=== PATIENT | male | born 1930 | race Caucasian/White ===

== ENCOUNTER 2019-05-18 12:19 | Inpatient (IN) ==
[2019-05-18 13:27] VITALS: BMI 24.9
[2019-05-18] MEDS ORDERED: NITROSTAT SL PRN (15:15)
[2019-05-18] MEDS ORDERED: TYLENOL PO PRN (15:15)
[2019-05-18] MEDS ORDERED: VISTARIL INJ IM PRN (15:15)
[2019-05-18] MEDS ORDERED: ATROPINE SULFATE PFS IVP PRN (15:15)
--- NOTE | 2019-05-18 16:51 | DI ---
EXAM: Chest one view HISTORY: Shortness of breath COMPARISON: None TECHNIQUE: Single view of the chest was performed FINDINGS: The lungs are clear. There is no pleural effusion or pneumothorax. The heart is enlarged and unchanged in size. The mediastinal contour is unchanged, noting atherosclerosis. There are no acute abnormalities of the bones. IMPRESSION: Cardiomegaly. No acute cardiopulmonary process.
[2019-05-18] MEDS: ASPIRIN EC PO SCH (17:00)
[2019-05-18] MEDS: SODIUM CHLORIDE 1,000 ML IV SCH (18:57)
[2019-05-19] MEDS: SODIUM CHLORIDE 1,000 ML IV SCH (07:13)
[2019-05-19] MEDS: NORVASC PO SCH (09:00)
[2019-05-19] MEDS: TOPROL XL PO SCH (09:00)
[2019-05-19] MEDS: ASPIRIN EC PO SCH (09:00)
[2019-05-19] MEDS: ZESTRIL PO SCH (09:00)
--- NOTE | 2019-05-19 09:53 | HP ---
DATE OF SERVICE: 05/18/19 REASON FOR HOSPITALIZATION/HISTORY OF PRESENT ILLNESS: 88 year old gentleman was hospitalized with being unable to walk, wears braces and shoulder pain with frequent falls. He has a history of slow heart rate and history of syncopal episodes. PAST MEDICAL HISTORY: Hypertension Alzheimer's Dementia Dyslipidemia BPH Chronic kidney disease, stage 3 Osteoarthritis-generalized History of shortness of breath Enlarged Prostate Incontinence and frequency of urination PAST SURGICAL HISTORY: Hernia Bilateral knee AA Cancer on ears/ nose Cataracts Right groin surgery two years ago REVIEW OF SYSTEMS: CONSTITUTIONAL: No night sweats. Weakness and fatigue. No fever or chills. HEENT: Eyes: No visual changes. No eye pain. No eye discharge. ENT: No runny nose. No epistaxis. No sinus pain. No sore throat. No odynophagia. No ear pain. No congestion. RESPIRATORY: No cough, no congestion. No hemoptysis. No shortness of breath. Dyspnea. CARDIOVASCULAR: No angina symptoms. No CHF symptoms. No atypical chest pain for CAD. No palpitations. No PND. No orthopnea. GASTROINTESTINAL: No abdominal pain. No nausea or vomiting. No diarrhea or constipation. No hematemesis. No hematochezia. GENITOURINARY: No urgency. No frequency. No dysuria. No hematuria. No obstructive symptoms. No discharge. No pain. No significant abnormal bleeding. MUSCULOSKELETAL: No musculoskeletal pain. No joint swelling. No arthritis. Fall and frequent falls. NEUROLOGICAL: No headache. No neck pain. No syncope. No seizures. Dizziness/Syncope. PSYCHIATRIC: Not anxious. No depression. No suicidal thoughts. No homicidal thoughts. SKIN: No rash. No lesions. No wounds. ENDOCRINE: No unexplained weight loss. No weight gain. HEMATOLOGIC/LYMPHATIC: No anemia. No purpura. No petechiae. No prolonged or excessive bleeding. No palpable lymph nodes. PERSONAL/FAMILY/SOCIAL HISTORY: Father Mother Brother/Sisters: None MEDICATIONS: Aspirin 81mg Po daily Amlodipine 5mg PO daily Lisinopril 10mg PO daily Mobic 7.5mg Po daily Metoprolol succinate 50mg ALLERGIES: No known allergies PHYSICAL EXAMINATION: GENERAL: The patient is pale. Alert and oriented to person only. VITAL SIGNS: Blood pressure 124/80 right, 126/80 left, respiratory rate 18, temperature 97.9, weight 145, pulse rate 60 with oxygen saturation 98%. HEENT: Head normocephalic, atraumatic. Eyes: Extraocular muscles are intact. Pupils are equal, round and reactive to light and accommodation. Ears: No lesions. Nose appeared normal. Throat: No exudate or erythema. NECK: Supple. No JVD, no carotid bruit. No lymphadenopathy or thyromegaly. LUNGS: Clear, equal diminished. Percussion note normal. Chest symmetrical. HEART: S1, S2, no S3. No murmur. No cyanosis or clubbing. No ascites. Pulses: Dorsalis pedis and posterior tibial pulses +1 to +2 bilaterally. ABDOMEN: Soft. Nontender. Bowel sounds active. No CVA tenderness. No mass felt. Femoral arteries +2. EXTREMITIES: Trace to +1 bilateral leg edema. Full range of motion of all extremities, equal. NEUROLOGIC: No focal deficit. Cranial nerves II through XII are grossly intact. No headache, no double vision or headache. SKIN: Not dry. Intact. Turgor - normal. LYMPHATIC: No palpable lymph nodes/no lymphedema. MUSCULOSKELETAL: Normal joints with no swelling. Muscle tone is normal. Leg weakness- in wheelchair. braces on knees. Decreased muscle tones in the legs. ASSESSMENT: 1. Dizziness 2. Frequent falls 3. Syncopal episode 4. History of bradyarrhythmia 5. History of bradycardia/bradyarrhythmia 6. Hypertension 7. Recent UTI 8. Dyslipidemia 9. Alzheimer's 10. BPH 11.Chronic Kidney Disease- stage 3 12.Knee osteoarthritis 13.Leg weakness. PLAN: 1. Admit 2. No cardiac markers 3. Routine telemetry orders 4. T4/TSH/ A1c/Lipids x1 5. Chest x-ray 6. Urinalysis 7. Regular diet 8. Fall precautions 9. Continue home medications TIME SPENT: More than 70 minutes. MTDD
--- NOTE | 2019-05-19 11:57 | RS.PTINEVL ---
Subjective - Patient information Date of Evaluation: 05/19/19 Date of Arrival on Unit: 05/18/19 Admitted From:: Home Diagnosis: dizziness and frequent falls Usual Living Arrangement: lives with step son and Home Environment: House, Stairs (few) Medical History: Hypertension, Dementia (alzheimer's disease), Arthritis Medical History Comments:: enlarged prostate LATEX ALLERGY?: No Surgical History Comments:: R groin sx, B knee surgery Medications: see chart Subjective Information/ Patient Comments:: pt states he has to have braces on B LE to be able to walk. pt unable to recall why he has to have knee braces. pt states he is able to transfer and walk at home (pt is poor historian). - Level of function Prior to this admission, the patient could do the following:: Partially Dependent Ambulation Abilities prior to this admission: pt had assist with ADL's Current Level of Function: Partially Dependent Current Equipment Used at Home: wheelchair, rolling walker, shower chair. commode, bed rail Interventions - Objective Patient Orientation: Person, Place Current Interventions: IV's, Telemetry Observation: pt with swelling BLE LLE worse than RLE. pt with L knee deformity with decreased flex, RLE with varus deformity and decreased flex Range of Motion - ROM Right Upper Extremity AROM: Marked limitation (decreased shld flex) Left Upper Extremity AROM: Marked limitation (decreased shld flex) Right Lower Extremity AROM: Marked limitation (decreased knee flex/ext) Left Lower Extremity AROM: Marked limitation (decreased knee flex/ext) Muscle Strength - Muscle Strength Right Upper Extremity Strength: Mild Weakness (shld flex 3-/5 , elbow flex/ext 3+/5) Left Upper Extremity Strength: Mild Weakness (shld flex 3-/5, elbow flex/ext 3+/5) Right Lower Extremity Strength: Mild Weakness (hip flex 3+/5, knee flex 3-/5, ext 3/5, ankle Df/PF 3+/5) Left Lower Extremity Strength: Mild Weakness (hip flex 3+/5, knee flex 3-/5, ext 3/5, ankle Df/PF 3+/5) Sensation - Sensation Right Upper Extremity Sensation: Intact/Normal Left Upper Extremity Sensation: Intact/Normal Right Lower Extremity Sensation: Intact/Normal Left Lower Extremity Sensation: Intact/Normal Palpation Palpation Findings: None/Normal Balance - Sitting Balance and Reactions Static Sitting Balance: Fair Dynamic Sitting Balance: Poor Sitting Equilibrium Reactions: Delayed Left, Delayed Right Sitting Protective Reactions: Delayed Left, Delayed Right - Standing Balance and Reactions Static Standing Balance: Poor Dynamic Standing Balance: Poor Standing Equilibrium Reactions: Delayed Left, Delayed Right Standing Protective Reactions: Delayed Left, Delayed Right Functional Mobility - Bed Mobility Rolling R/L: Min Assist Supine to Sit: Min Assist, 2 person assist - Transfers Sit to Stand: Min Assist, Mod Assist, 2 person assist Stand to Sit: Min Assist, 2 person assist - Safety Awareness Safety Awareness: Fair LETICIA INDEX SCORE: n/a Ambulation - Ambulation Assistive Device Used: Rolling Walker Orthotic/Prosthetic Device: No Distance: 5ft Assistance needed with Ambulation: Min Assist, Mod Assist, 2 person assist Gait Deviations: Forward posture, Short stride, Deviates from path Ambulation Comments: pt amb with LLE ext rotated with decreased step length, pt amb with significant forward flexed posture. Factors Affecting Ambulation: Decreased Balance, Weakness, Decreased Safety, Cognitive Status, Limited Endurance Treatment time - Time with patient Length of Evaluation: 19 Total treatment time: 24 Patient Education - Education Patient Education: Activity Modification, Education of Plan of Care Teaching Recipient: Patient Teaching Methods: Discussion Comments: discussion regarding POC Assessment - Assessment Problem List:: Decreased level of function, Requires training/education, Decreased safety/Risk of falls, Weakness, Cognitive status limits abilities Rehab Potential: Fair Further Therapy Indicated?: Yes Candidate for Swing Bed for Therapy Services?: feel pt would not be a candidate for swing bed for therapy, feel pt may require [facility] care. Evaluation Complexity: HISTORY: Medium, EXAM OF BODY SYSTEMS: Medium, CLINICAL DECISION MAKING: Medium Short Term Goals GOAL #1: pt demonstrate rolling with min x 1 Goal to be met by: 05/21/19 GOAL #2: Transfer sup to/from sit min x 1 Goal to be met by: 05/21/19 GOAL #3: Sit to/from stand min x2 Goal to be met by: 05/21/19 GOAL #4: pt amb with rwx with braces 25 ft with min x 2 Goal to be met by: 05/21/19 GOAL #5: Stand pivot bed to chair with min x 1 Goal to be met by: 05/21/19 [facility] Goals GOAL #1: pt transfer sit to/from stand minx 1 Goal to be met by: 05/24/19 GOAL #2: pt amb 75ft with rwx and braces with min x 1 Goal to be met by: 05/24/19 GOAL #3: pt with improved dyn sit balance fair + Goal to be met by: 05/24/19 Plan Plan of Care: Therapeutic EX, Therapeutic Activity Other:: gait training Frequency of Treatment: 1-2 X day, as tolerated Duration of Treatment: 5 days Anticipated Discharge Destination: LTC vs home Treatment Diagnosis (ICD 10 Codes): balance impaired R 26.81. difficulty walking R 26.2 Has the Physician been added for Co-signature?: Yes
[2019-05-19] MEDS: MOBIC PO SCH (13:18)
--- NOTE | 2019-05-19 13:29 | RS.OTINEVL ---
Subjective - Patient information Date of Evaluation: 05/19/19 Date of Arrival on Unit: 05/18/19 Admitted From:: Home Diagnosis: Hx of falls PRECAUTIONS: Risk for falls, needs to wear braces on his legs. Usual Living Arrangement: lives with step son and Living Arrangement Comments: Step son and Home Environment: House, Stairs (few) Medical History: Hypertension, Dementia (alzheimer's disease), Arthritis Medical History Comments:: enlarged prostate LATEX ALLERGY?: No Surgical History Comments:: R groin sx, B knee surgery Medications: see chart Subjective Information/ Patient Comments:: "I want to get up and down myself." "This chair is low." - Level of function Prior to this admission, the patient could do the following:: Partially Depende nt Ambulation Abilities prior to this admission: Pt walks with braces of both legs. Pt uses a rollator walker. Pt has assistance with shower and self care. Current Level of Function: Partially Dependent Comments: Pt has to have splints to walk and a RW and assistance,. Current Equipment Used at Home: wheelchair, rolling walker, shower chair. commode, bed rail Pain Assessment - Pain Pain Location Body Site: Knee Pain Aggravating Factors: Standing Pain Alleviating Factors: Sitting Interventions - Objective Patient Orientation: Person, Place, Situation Current Interventions: IV's Observation: Pt is weak and has limited AROM of BUE shoulders and knees. Pt has difficulty with functional transfers. Interventions - ROM Right Upper Extremity AROM: Moderate limitation Left Upper Extremity AROM: Moderate limitation - Strength Right Upper Extremity Strength: Mild Weakness Left Upper Extremity Strength: Mild Weakness - Sensation Right Upper Extremity Sensation: Intact/Normal Left Upper Extremity Sensation: Intact/Normal Balance - Sitting Balance Static Sitting Balance: Fair Dynamic Sitting Balance: Fair - Standing Balance Static Standing Balance: Poor Dynamic Standing Balance: Poor - Comments Balance Assessment Comments: Poor- ADL Skills - Self Feeding Self Feeding: Independent - Dressing Dressing LE: Max Assist - Toilet Management Toileting Management: Mod Assist, 1 person assist Functional Mobility - Bed Mobility Rolling R/L: CGA Scooting: Min Assist Supine to Sit: CGA Sit to Supine: Min Assist - Transfers Sit to Stand: Min Assist, 1 person assist Stand to Sit: Min Assist, 1 person assist Stand Pivot Transfers: Min Assist, 2 person assist Comments:: Pt requires extra time due to the braces not being on his legs during standing and transfers. - Ambulation Weight Bearing Status: FWB Assistive Device Used: Rolling Walker Assistance needed with Ambulation: Min Assist, 2 person assist - Safety Awareness Safety Awareness: Good LETICIA INDEX SCORE: . Additional Treatment Performed - Time with patient Length of Evaluation: 20 Total treatment time: 21 Activities Do you enjoy playing games?: No Would you be interested in leaving your room for activities?: Yes Would you enjoy group activities?: No Do you have difficulty with your vision?: No What types of things do you enjoy doing? Any Hobbies?: Watch TV. Patient Interests:: Watching Television, Visiting/Socializing Patient Education Patient Education: Education of diagnosis, Education of Plan of Care Teaching Recipient: Patient Teaching Methods: Discussion Assessment Problem List:: Decreased level of function, Requires training/education, Decreased safety/Risk of falls, Weakness, Pain limits previous level of function Rehab Potential: Good Further Therapy Indicated?: Yes Evaluation Complexity: HISTORY: Medium, EXAM OF BODY SYSTEMS: Medium, CLINICAL DECISION MAKING: Medium Short Term Goals - Goals GOAL 1: Pt to tolerate 15 minutes of activity tolerance. Goal to be met by: 05/21/19 GOAL 2: Pt to increase dyn. std. balance to be minimal assist for sink level ADLS. Goal to be met by: 05/23/19 GOAL 3: Pt to increase functional transfers for toileting to be CGA. Goal to be met by: 05/23/19 [facility] Goals GOAL 1: Pt to tolerate 20 minutes of activity tolerance to increase I of self car. Goal to be met by: 05/26/19 GOAL 2: Pt to increase dyn. std. balance to be minimal assist for sink level ADLS. Goal to be met by: 05/26/19 GOAL 3: Pt to increase functional transfers for toileting to be Mod-I. Goal to be met by: 05/26/19 Plan Plan of Care: Therapeutic EX, Neuromuscular Re-Educ, Therapeutic Activity, Self- Care/Home Management Modalities: Cold Pack/Cryotherapy, Ultrasound Frequency of Treatment: 1-2 X day, as tolerated Duration of Treatment: 1 Week Anticipated Discharge Destination: [facility] Treatment Diagnosis (ICD 10 Codes): Muscle weakness M62.81, Z74.1 Need for assistanct with personal care. Has the Physician been added for Co-signature?: Yes
[2019-05-20] MEDS: SODIUM CHLORIDE 1,000 ML IV SCH ×2 (06:00→14:22)
[2019-05-20] MEDS: TOPROL XL PO SCH (08:44)
[2019-05-20] MEDS: MOBIC PO SCH (08:44)
[2019-05-20] MEDS: ZESTRIL PO SCH (08:44)
[2019-05-20] MEDS: ASPIRIN EC PO SCH (08:44)
[2019-05-20] MEDS: NORVASC PO SCH (08:45)
--- NOTE | 2019-05-20 14:04 | PN ---
DATE OF SERVICE: 05/19/19 SUBJECTIVE: 88 year old white male hospitalized because of dizziness, frequent falls and near syncopal episode. The patient has history of bradyarrhythmias, so far no bradyarrhythmias are having noted of any significance. The patient is feeling better. REVIEW OF SYSTEMS: CONSTITUTIONAL: No night sweats. No fatigue, malaise, lethargy. No fever or chills. Weakness. HEENT: Eyes: No visual changes. No eye pain. No eye discharge. ENT: No runny nose. No epistaxis. No sinus pain. No sore throat. No odynophagia. No congestion. RESPIRATORY: No cough, no congestion. No hemoptysis. No shortness of breath. CARDIOVASCULAR: No angina symptoms. No CHF symptoms. No atypical chest pain for CAD. No palpitations. No PND. No orthopnea. GASTROINTESTINAL: No abdominal pain. No nausea or vomiting. No diarrhea or constipation. No hematemesis. No hematochezia. GENITOURINARY: No urgency. No frequency. No dysuria. No hematuria. No obstructive symptoms. No discharge. No pain. No significant abnormal bleeding. MUSCULOSKELETAL: No musculoskeletal pain; no joint swelling. NEUROLOGICAL: No headache. No neck pain. No syncope. No seizures. No dizziness. PSYCHIATRIC: Not anxious. No depression. No suicidal thoughts. No homicidal thoughts. SKIN: No rash. No lesions. No wounds. ENDOCRINE: No unexplained weight loss. No weight gain. HEMATOLOGIC/LYMPHATIC: No anemia. No purpura. No petechiae. No prolonged or excessive bleeding. No palpable lymph nodes. PHYSICAL EXAMINATION: VITAL SIGNS: Temperature 98, pulse 57, respiratory rate 16, blood pressure 140/60 and pulse ox 97%. HEENT: Head normocephalic, atraumatic. Eyes: Extraocular muscles are intact. Pupils are equal, round and reactive to light and accommodation. Ears: No lesions. Nose appeared normal. Throat: No exudate or erythema. NECK: Supple. No JVD, no carotid bruit. No lymphadenopathy or thyromegaly. LUNGS: Decreased breath sounds but clear to auscultation. Percussion note normal. Chest symmetrical. HEART: S1, S2, no S3. No murmurs. No cyanosis or clubbing. No ascites. Pulses: Dorsalis pedis and posterior tibial pulses +1 to +2 bilaterally. ABDOMEN: Soft. Nontender. Bowel sounds active. No CVA tenderness. No mass felt. EXTREMITIES: No edema. Full range of motion of all extremities, equal. NEUROLOGIC: No focal deficit. Cranial nerves II through XII are grossly intact. No headache, no double vision or headache. SKIN: Not dry. Intact. Turgor - normal. LYMPHATIC: No palpable lymph nodes/no lymphedema. MUSCULOSKELETAL: Normal joints with no swelling. Muscle tone is normal. LABS: Hgb 11, hct 34, WBC 7,500 normal differential, creatinine 1.4, BUN 27, potassium 4.1, TSH is normal. ASSESSMENT: 1. Syncope 2. Frequent falls likely from declining overall health from aging processes and sedentary lifestyle PLAN: 1. Continue the same treatment 2. Monitor telemetry 3. The patient had an echo done which showed LVH with enlarged LA cavity and mild mitral regurgitation, normal LV ejection fraction with normal LV contractility. No evidence of coronary insufficiency. TIME SPENT: More than 30 minutes. Plan and coordination of the patient's care discussed in the presence of nurse. AIDEE
[2019-05-21] MEDS: ASPIRIN EC PO SCH (08:45)
[2019-05-21] MEDS: TOPROL XL PO SCH (08:48)
[2019-05-21] MEDS ORDERED: DITROPAN PO SCH (09:00)
[2019-05-21] MEDS ORDERED: ZESTRIL PO SCH (09:00)
[2019-05-21 09:03] VITALS: TEMP 98.1
--- NOTE | 2019-05-21 09:07 | PCM.PROG ---
Attending Provider: ATTENDING PROVIDER: Dr. TATY BLANCO This patient is seen with Kristy Merlos, Nurse Practitioner. DATE OF SERVICE: 05/21/19 SUBJECTIVE: This 88 year old /WHITE M was hospitalized 05/18/19. The patient is resting comfortably. He is pleasantly confused. No dizziness and no signs of bradycardia. Blood pressure is slightly elevated. REVIEW OF SYSTEMS: CONSTITUTIONAL: No night sweats. No fatigue, malaise, lethargy. No fever or chills. Generalized weakness. HEENT: Eyes: No visual changes. No eye pain. No eye discharge. ENT: No runny nose. No epistaxis. No sinus pain. No odynophagia. No congestion. RESPIRATORY: No cough, no congestion. No hemoptysis. No shortness of breath. CARDIOVASCULAR: No angina symptoms. No CHF symptoms. No atypical chest pain for CAD. No palpitations. No orthopnea.. GASTROINTESTINAL: No abdominal pain. No nausea or vomiting. No diarrhea or constipation. No hematemesis. No hematochezia. GENITOURINARY: No urgency. No frequency. No dysuria. No hematuria. No obstructive symptoms. No discharge. No pain. No significant abnormal bleeding. MUSCULOSKELETAL: No musculoskeletal pain; no joint swelling. Leg weakness. NEUROLOGICAL: Awake, alert, confused. No headache. No neck pain. No syncope. No seizures. No dizziness. PSYCHIATRIC: Not anxious. No depression. No suicidal thoughts. No homicidal thoughts. SKIN: No rash. No lesions. No wounds. ENDOCRINE: No unexplained weight loss. No weight gain. HEMATOLOGIC/LYMPHATIC: No anemia. No purpura. No petechiae. No prolonged or excessive bleeding. No palpable lymph nodes. PHYSICAL EXAMINATION: GENERAL: The patient is awake, alert and oriented to person only, lying in bed in no distress. VITAL SIGNS: Temperature 97.7 F, Pulse 58, Respiratory Rate 16, BP 176/63, Pulse Ox 98% HEENT: Head normocephalic, atraumatic. Eyes: Extraocular muscles are intact. Pupils are equal, round and reactive to light and accommodation. Ears: No lesions. Nose appeared normal. Throat: No exudate or erythema. NECK: Supple. No JVD, no carotid bruit. No lymphadenopathy or thyromegaly. LUNGS: Clear to auscultation. Percussion note normal. Chest symmetrical. HEART: S1, S2, no S3. No murmurs. No cyanosis or clubbing. No ascites. Pulses: Dorsalis pedis and posterior tibial pulses +1 to +2 both sides. ABDOMEN: Soft. Non-tender. Bowel sounds active. No CVA tenderness. No mass felt. EXTREMITIES: No edema. Full range of motion of all extremities, equal. NEUROLOGIC: No focal deficit. Cranial nerves II through XII are grossly intact. No headache, no double vision or headache. SKIN: Not dry. Intact. Turgor-normal. LYMPHATIC: No palpable lymph nodes/no lymphedema. MUSCULOSKELETAL: Normal joints with no swelling. Muscle tone is normal. LAB REVIEW: 05/21/19 04:44 05/21/19 04:44 05/21/19 04:44: Sodium 140.3, Potassium 3.96, Chloride 108.4 H, Carbon Dioxide 27.2, Anion Gap 8.66, BUN 29.2 H, Creatinine 1.31 H, Estimated GFR (MDRD) 52.00, BUN/Creatinine Ratio 22.29, Glucose 79.8, Calcium 9.06, Total Bilirubin 0.38, AST 22.5, ALT 16.6, Alkaline Phosphatase 55.5 L, Total Protein 6.50, Albumin 3.59, Globulin 2.91, Albumin/Globulin Ratio 1.23 05/21/19 04:44: WBC 9.65, RBC 3.81 L, Hgb 11.7 L, Hct 36.2 L, MCV 95.0 H, MCH 30.7, MCHC 32.3, RDW Coeff of [place] 13.3, Plt Count 247, Immature Gran % (Auto) 0 .5, Neut % (Auto) 66.3, Lymph % (Auto) 15.9, [place] % (Auto) 10.2 H, Eos % (Auto) 6.6, Baso % (Auto) 0.5, Immature Gran # (Auto) 0.1, Neut # (Auto) 6.4, Lymph # (Auto) 1.5, [place] # (Auto) 1.0, Eos # (Auto) 0.6, Baso # (Auto) 0.1 ASSESSMENT: Please see below. 1. Syncope 2. Frequent falls likely from declining overall health from aging processes and sedentary lifestyle PLAN: 1. Discharge to [place] today 2. Norvasc 10mg at bedtime 3. Lisinopril 20mg QAM 4. Discontinue Mobic 5. CBC and CMP in one week 6. Followup at the intermediate. Plan and coordination of the patient's care discussed in the presence of Obstetrician and nurse. SCRIBED BY: Alex FERROist scribed while in presence of service performed by Dr. Blanco/Kristy Merlos APRN on 05/21/19 ([id number])
[2019-05-21] MEDS: MOBIC PO SCH (10:17)
--- NOTE | 2019-05-21 12:52 | CM.DICTOOL ---
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, BILATERAL LAST VITALS Temp Pulse Resp BP Pulse Ox 98.1 F 70 16 129/66 98 05/21/19 09:49 05/21/19 09:49 05/21/19 09:49 05/21/19 09:49 05/21/19 10:00 TAKE THESE MEDICATIONS AT HOME Acetaminophen (Tylenol) 650 mg PO Q4H PRN PRN Reason: Pain Amlodipine Besylate (Norvasc) 10 mg PO BEDTIME [facility] Aspirin (Aspirin Ec) 81 mg PO DAILYWM [facility] Last Admin: 05/21/19 08:45 Dose: 81 mg Lisinopril (Zestril) 20 mg PO QAM [facility] Last Admin: 05/21/19 08:50 Dose: 20 mg Metoprolol Succinate (Toprol Xl) 50 mg PO DAILY [facility] Last Admin: 05/21/19 08:48 Dose: 50 mg Oxybutynin Chloride (Ditropan) 5 mg PO QAM [facility] Last Admin: 05/21/19 08:48 Dose: 5 mg ALLERGIES No Known Allergies Allergy (Unverified 05/18/19 13:15) DISCONTINUED MEDICATIONS Meloxicam (Mobic) NEW PRESCRIPTIONS: NORVASC 10MG PO QHS LISINOPRIL 20MG PO QAM OXYBUTYNIN 5MG PO QAM CBC & CMP IN ONE WEEK (05/28/19) SMOKING: FORMER SMOKER DISEASE SPECIFIC EDUCATION: FREQUENT FALLS DIZZINESS MEDICATION MANAGEMENT FOLLOW-UPS LAB REVIEW: 05/21/19 04:44 05/21/19 04:44 05/21/19 04:44: Sodium 140.3, Potassium 3.96, Chloride 108.4 H, Carbon Dioxide 27.2, Anion Gap 8.66, BUN 29.2 H, Creatinine 1.31 H, Estimated GFR (MDRD) 52.00, BUN/Creatinine Ratio 22.29, Glucose 79.8, Calcium 9.06, Total Bilirubin 0.38, AST 22.5, ALT 16.6, Alkaline Phosphatase 55.5 L, Total Protein 6.50, Albumin 3.59, Globulin 2.91, Albumin/Globulin Ratio 1.23 05/21/19 04:44: WBC 9.65, RBC 3.81 L, Hgb 11.7 L, Hct 36.2 L, MCV 95.0 H, MCH 30.7, MCHC 32.3, RDW Coeff of Ladan 13.3, Plt Count 247, Immature Gran % (Auto) 0.5, Neut % (Auto) 66.3, Lymph % (Auto) 15.9, [place] % (Auto) 10.2 H, Eos % (Auto) 6.6, Baso % (Auto) 0.5, Immature Gran # (Auto) 0.1, Neut # (Auto) 6.4, Lymph # (Auto) 1.5, [place] # (Auto) 1.0, Eos # (Auto) 0.6, Baso # (Auto) 0.1 PLAN: PLAN TO DISCHARGE TO HOME TODAY, 05/21/2019 DIET: REGULAR DIET ACTIVITY: 2 PERSON MODERATE ASSIST GAIT BELT AND ROLLING WALKER GAIT IS UNSTEADY AND SLOW - RISK FOR FALLS FOLLOW-UP: WILL SEE ON ROUNDS AT [facility] CODE STATUS: DO NOT RESUSCITATE LABS: CBC AND CMP IN ONE WEEK ON 05/28/2019. MR. GOTTI IS ORIENTED TO PERSON THIS MORNING, PLEASANTLY CONFUSED TO TIME, PLACE, AND SITUATION. DENIES THE PRESENCE OF DIZZINESS. FAMILY IS AGREEABLE WITH PLAN TO DISCHARGE TO [facility] TODAY. PT WILL BE GOING TO ROOM 150-1. LUNG SOUNDS ARE CLEAR, NO SOA PRESENT. NO NOTED EDEMA. ABDOMEN IS SOFT, BOWEL SOUNDS ACTIVE, LAST BM 05/14/2019. URINARY INCONTINENCE, PT WEARS DIAPER. PT HAS GENERALIZED WEAKNESS AND IS AT RISK FOR FALLS, REQUIRES X2 MODERATE ASSISTANCE WITH ROLLING WALKER AND GAIT BELT. APPETITE IS GOOD, HYDRATION STATUS IS ADEQUATE. TATY BLANCO M.D. ISAK MCINTYRE, TRANSIT PROOF MACHINE OPERATOR
--- NOTE | 2019-05-21 13:22 | PN ---
DATE OF SERVICE: 05/20/19 SUBJECTIVE: The patient was seen and examined today. The patient's condition is stable. He is feeling a lot better. Rhythm strips reviewed and it showed sinus rhythm. No V-tech or any SVT noted. The patient's records from [facility] [place] [facility] reviewed and the patient had both knees x-rays done which showed severe osteoarthritis. The patient needs to have physical therapy. REVIEW OF SYSTEMS: CONSTITUTIONAL: No night sweats. No fatigue, malaise, lethargy. No fever or chills. HEENT: Eyes: No visual changes. No eye pain. No eye discharge. ENT: No runny nose. No epistaxis. No sinus pain. No sore throat. No odynophagia. No congestion. RESPIRATORY: No cough, no congestion. No hemoptysis. No shortness of breath. CARDIOVASCULAR: No angina symptoms. No CHF symptoms. No atypical chest pain for CAD. No palpitations. No PND. No orthopnea. GASTROINTESTINAL: No abdominal pain. No nausea or vomiting. No diarrhea or constipation. No hematemesis. No hematochezia. GENITOURINARY: No urgency. No frequency. No dysuria. No hematuria. No obstructive symptoms. No discharge. No pain. No significant abnormal bleeding. MUSCULOSKELETAL: No musculoskeletal pain; no joint swelling. NEUROLOGICAL: No headache. No neck pain. No syncope. No seizures. No dizziness. PSYCHIATRIC: Not anxious. No depression. No suicidal thoughts. No homicidal thoughts. SKIN: No rash. No lesions. No wounds. ENDOCRINE: No unexplained weight loss. No weight gain. HEMATOLOGIC/LYMPHATIC: No anemia. No purpura. No petechiae. No prolonged or excessive bleeding. No palpable lymph nodes. PHYSICAL EXAMINATION: VITAL SIGNS: Temperature 98.3, pulse 63, respiratory rate 18, blood pressure 170/73 and pulse ox 98%. HEENT: Head normocephalic, atraumatic. Eyes: Extraocular muscles are intact. Pupils are equal, round and reactive to light and accommodation. Ears: No lesions. Nose appeared normal. Throat: No exudate or erythema. NECK: Supple. No JVD, no carotid bruit. No lymphadenopathy or thyromegaly. LUNGS: Decreased breath sounds but clear to auscultation. Percussion note normal. Chest symmetrical. HEART: S1, S2, no S3. No murmurs. No cyanosis or clubbing. No ascites. Pulses: Dorsalis pedis and posterior tibial pulses +1 to +2 bilaterally. ABDOMEN: Soft. Nontender. Bowel sounds active. No CVA tenderness. No mass felt. EXTREMITIES: No edema. Full range of motion of all extremities, equal. NEUROLOGIC: No focal deficit. Cranial nerves II through XII are grossly intact. No headache, no double vision or headache. SKIN: Not dry. Intact. Turgor - normal. LYMPHATIC: No palpable lymph nodes/no lymphedema. MUSCULOSKELETAL: Normal joints with no swelling. Muscle tone is normal. Arthritic pain and not having enough strength to walk. LABS: Hgb 10.9, hct 34, WBC 8,800 normal differential, creatinine 1.4, BUN 27, potassium 4.1. ASSESSMENT: 1. Frequent falls from severe osteoarthritis of the knee 2. Generalized weakness and deterioration of overall health from aging process 3. Chronic anemia 4. Chronic kidney disease 5. History of bradyarrhythmias CONDITION: Stable for now. TIME SPENT: More than 30 minutes. Plan and coordination of the patient's care discussed in the presence of nurse. AIDEE
[2019-05-21 14:09] VITALS: BP 108/54
[2019-05-21] MEDS ORDERED: NORVASC PO SCH (21:00)
--- NOTE | 2019-05-24 13:47 | DS ---
DATE OF SERVICE: 05/21/19 FINAL DIAGNOSIS: 1. SYNCOPAL EPISODE, RESOLVED 2. DIZZINESS, RESOLVED 3. FREQUENT FALLS, HISTORY OF 4. BRADYARRHYTHMIA 5. HYPERTENSION 6. DYSLIPIDEMIA 7. BENIGN PROSTATIC HYPERTROPHY 8. CHRONIC KIDNEY DISEASE, STAGE 3 9. ALZHEIMER'S DEMENTIA 10.OSTEOARTHRITIS 11.2D ECHO, 05/19/2019 12.HERNIA REPAIR 13.KNEE AA, RODDY 14.CANCER ON EARS/NOSE 15.CATARACTS, BILATERAL LAST VITALS: Temp Pulse Resp BP Pulse Ox 98.1 F 70 16 129/66 98 05/21/19 09:49 05/21/19 09:49 05/21/19 09:49 05/21/19 09:49 05/21/19 10:00 DISCHARGE INSTRUCTIONS: PLAN TO DISCHARGE TO HOME TODAY, 05/21/2019. FOLLOW-UP: WILL SEE ON ROUNDS AT [facility]. CODE STATUS: DO NOT RESUSCITATE. LABS: CBC AND CMP IN ONE WEEK ON 05/28/2019. TAKE THESE MEDICATIONS AT HOME: Acetaminophen (Tylenol) 650 mg PO Q4H PRN Amlodipine Besylate (Norvasc) 10 mg PO BEDTIME [facility] Aspirin (Aspirin Ec) 81 mg PO DAILYWM [facility] Lisinopril (Zestril) 20 mg PO QAM [facility] Metoprolol Succinate (Toprol Xl) 50 mg PO DAILY [facility] Oxybutynin Chloride (Ditropan) 5 mg PO QAM [facility] ALLERGIES: No Known Allergies Allergy (Unverified 05/18/19 13:15) DISCONTINUED MEDICATIONS: Meloxicam (Mobic) NEW PRESCRIPTIONS: NORVASC 10MG PO QHS LISINOPRIL 20MG PO QAM OXYBUTYNIN 5MG PO QAM CBC & CMP IN ONE WEEK (05/28/19) SMOKING: FORMER SMOKER DISEASE SPECIFIC EDUCATION: FREQUENT FALLS DIZZINESS MEDICATION MANAGEMENT FOLLOW-UPS DIET: REGULAR DIET ACTIVITY: 2 PERSON MODERATE ASSIST GAIT BELT AND ROLLING WALKER GAIT IS UNSTEADY AND SLOW - RISK FOR FALLS HOSPITAL COURSE: This is a white male who presented to our office. He had had a syncopal episode was dizzy and had been falling recently. He is fairly new patient to us. He was hospitalized about a month ago with a bladder infection and bradycardia and then went back to the emergency room at [facility] about two weeks ago. Also found to have another UTI. He had a Holter monitor which we do not know the result of. He is very weak requiring assistance with ambulation. We admitted him and he was found to be dehydrated. Kidney function elevated. BUN up to 47. He was placed on slow IV fluids normal saline at 75 cc an hour and placed on telemetry. There was no significant bradycardia or arrhythmias noted on the telemetry. X-ray were reviewed from previous hospitalization showing significant arthritis of both knees. after IV fluids he did seem to feel better and reported less dizziness. Blood pressure has become elevated, today has been up with systolic in the 170's. We will increase his Norvasc to 10mg at bedtime and then make his Lisinopril 20mg in the morning. At the time of discharge blood pressure 129/66. Dr. Nelson did perform an echo which showed mild LVH, normal contractility. We did discontinue his Mobic due to his chronic kidney disease. He is terrible incontinent so we will start Oxybutynin 5mg to take in the morning. He does also have a history of BPH. He has seen neurology. I believe they tried Myrbetriq however the family couldn't afford this medication and so he has not been on anything. He has not had very good followup. The family wish for him to go to [place] for rehab, hopefully with strengthening of his legs to prevent further falls as he has been home with them requiring 24 hour care. We will discharge him in stable condition. CBC and CMP in one week. [facility]. He is discharged in stable condition. TIME SPENT: More than 60 minutes. AIDEE
--- NOTE | 2019-05-25 10:42 | PN ---
DATE OF SERVICE: 05/21/19 SUBJECTIVE: The patient was seen and examined with the Nurse Practitioner. The patient's condition is stable. The patient so far uneventful hospital course. He is going to be discharged to the senior living. REVIEW OF SYSTEMS: CONSTITUTIONAL: No night sweats. No fatigue, malaise, lethargy. No fever or chills. HEENT: Eyes: No visual changes. No eye pain. No eye discharge. ENT: No runny nose. No epistaxis. No sinus pain. No sore throat. No odynophagia. No congestion. RESPIRATORY: No cough, no congestion. No hemoptysis. No shortness of breath. CARDIOVASCULAR: No angina symptoms. No CHF symptoms. No atypical chest pain for CAD. No palpitations. No PND. No orthopnea. GASTROINTESTINAL: No abdominal pain. No nausea or vomiting. No diarrhea or constipation. No hematemesis. No hematochezia. GENITOURINARY: No urgency. No frequency. No dysuria. No hematuria. No obstructive symptoms. No discharge. No pain. No significant abnormal bleeding. MUSCULOSKELETAL: No musculoskeletal pain; no joint swelling. NEUROLOGICAL: No headache. No neck pain. No syncope. No seizures. No dizziness. PSYCHIATRIC: Not anxious. No depression. No suicidal thoughts. No homicidal thoughts. SKIN: No rash. No lesions. No wounds. ENDOCRINE: No unexplained weight loss. No weight gain. HEMATOLOGIC/LYMPHATIC: No anemia. No purpura. No petechiae. No prolonged or excessive bleeding. No palpable lymph nodes. PHYSICAL EXAMINATION: HEENT: Head normocephalic, atraumatic. Eyes: Extraocular muscles are intact. Pupils are equal, round and reactive to light and accommodation. Ears: No lesions. Nose appeared normal. Throat: No exudate or erythema. NECK: Supple. No JVD, no carotid bruit. No lymphadenopathy or thyromegaly. LUNGS: Clear to auscultation. Percussion note normal. Chest symmetrical. HEART: S1, S2, no S3. No murmurs. No cyanosis or clubbing. No ascites. Pulses: Dorsalis pedis and posterior tibial pulses +1 to +2 bilaterally. ABDOMEN: Soft. Nontender. Bowel sounds active. No CVA tenderness. No mass felt. EXTREMITIES: No edema. Full range of motion of all extremities, equal. NEUROLOGIC: No focal deficit. Cranial nerves II through XII are grossly intact. No headache, no double vision or headache. SKIN: Not dry. Intact. Turgor - normal. LYMPHATIC: No palpable lymph nodes/no lymphedema. MUSCULOSKELETAL: Normal joints with no swelling. Muscle tone is normal. LABS: Telemetry did not show any significant arrhythmias CARDIOVASCULAR STATUS: Stable. ASSESSMENT: 1. Bilateral severe osteoarthritis of the right, inability to ambulate and walk PLAN: 1. The patient will undergo physical therapy and see how he does TIME SPENT: More than 30 minutes. Plan and coordination of the patient's care discussed in the presence of nurse. AIDEE
--- NOTE | 2019-05-25 10:43 | PN ---
05/18/19: Level 5 05/19/19: Intermediate 05/20/19: Intermediate 05/21/19: D as in discharge MTDD
--- NOTE | 2019-06-03 10:25 | ECHO2D ---
Date of Exam: 05/19/19 Ordering Physician: DR. TATY BLANCO Room #: 109 Reason for Echo: DIZZINESS, BRADYCARDIA, HTN M-Mode Normal Adult Results LV Dimensions Normal Adult Results AoV Opening excursions >1.6 >1.6 LVEDD-base- 3.5-5.8 4.8 Ao root dimensions 2.0-3.7 3.2 LVESD-base- 3.1-4.6 L. Atrium dimensions 1.9-3.8 4.8 Post. Wall thickness 0.8-1.1 1.2 IV septum (thickness) 0.7-1.2 1.3 Post. Wall excursion 0.72-1.3 NORMAL Septal motion NORMAL Systolic motion R. Ventricular cavity 1.5-2.0 NORMAL LVEF 60% 61% Paradoxical septal wall motion NORMAL 2-D : 2-D M Mode Echocardiogram was performed using apical four chamber and left parasternal long and short axis views. Mitral, tricuspid and aortic valves appear to be normal. Contractility of the left ventricle seems to be normal, so is the cavity size. ENLARGED LEFT ATRIAL CAVITY. Aortic root appears to be normal. There is no pericardial effusion. There is no thrombus noted in the left ventricle or left atrial cavity. No mitral valve prolapse noted. COLOR FLOW: MILD TO MODERATE AORTIC REGURGITATION M-MODE: MV: CALCIFIC MITRAL VALVE ANNULUS AV: NORMAL TV: NORMAL PV: CHAMBER SIZE: ENLARGED LEFT ATRIAL CAVITY WALL MOTION: NORMAL PERICARDIUM: NORMAL INTERPRETATION: 1. LEFT VENTRICULAR HYPERTROPHY WITH ENLARGED LEFT ATRIAL CAVITY 2. NORMAL LEFT VENTRICULAR CONTRACTILITY 3. NORMAL VALVES 4. MILD TO MODERATE AORTIC REGURGITATION 5. CALCIFIC MITRAL VALVE ANNULUS MTDD
== END 2019-05-21 14:05 | DRG 149 ==
LOC: MEDSURG A 12:19
PROVIDERS: ADMIT Internal Medicine; ATTEND Internal Medicine
DX: I10 Essential (primary) hypertension; F02.80 Dementia in other diseases classified elsewhere, unspecified severity, without behavioral disturbance, psychotic disturbance, mood disturbance, and anxiety; N18.3 Chronic kidney disease, stage 3 (moderate); R55 Syncope and collapse; R53.1 Weakness; G30.9 Alzheimer's disease, unspecified; M17.10 Unilateral primary osteoarthritis, unspecified knee; E78.5 Hyperlipidemia, unspecified; N40.0 Benign prostatic hyperplasia without lower urinary tract symptoms; R42 Dizziness and giddiness; D64.9 Anemia, unspecified; I49.8 Other specified cardiac arrhythmias

== ENCOUNTER 2019-09-07 13:14 | Inpatient (IN) ==
[2019-09-07] MEDS ORDERED: DUONEB NEB STA (13:49)
[2019-09-07 14:04] LABS: HEMATOCRIT 35.5 % (42.0-52.0)
--- NOTE | 2019-09-07 14:11 | ED.PDOC ---
General ED Provider: Dr. ALEXANDER SLOAN Chief Complaint: Cough Stated Complaint: Has become increasingly congested at CO despite tx with oral antibiotics and po steroids/ Has coarse productive cough and reported O 2 Sats decreasing to 87=-88%. Referred her by Dr Blanco Time Seen by Physician: 13:40 Mode of Arrival: Wheelchair Information Source: Patient Primary Care Provider: TATY BLANCO Nursing and Triage Documentation Reviewed and Agree: Yes Does patient meet sepsis criteria?: No System Inflammatory Response Syndrome: Not Applicable Sepsis Protocol: For patient's 13 years and over: Temp is 96.8 and below OR 101 and greater Pulse >90 BPM Resp >20/minute Acutely Altered Mental Status Are patient's symptoms suggestive of a new infection, such as: -Pneumonia -Skin, Soft Tissue -Endocarditis -UTI -Bone, Joint Infection -Implantable Device -Acute Abdominal Infection -Wound Infection -Meningitis -Blood Stream Catheter Infection -Unknown Respiratory Complaint Exam Respiratory Complaint/Exam Onset/Duration: 1 wk Symptoms Are: Still present Timing: Intermittent Initial Severity: Moderate Current Severity: Mild Location: Chest Character: Reports Productive cough Aggravating: Reports Recumbent position Alleviating: Reports None Associated Signs and Symptoms: Reports Dyspnea, Fever and Wheezing Related History: Reports Similar episode History of Healthcare-Acquired Pneumonia: Lives at care home Related Surgical History: Reports None Pulmonary Embolism Risk Factors: None Cardiac Risk Factors: Reports None Pseudomonas Risk Factors: Reports None Tuberculosis Risk Factors: Reports None Status Asthmaticus Risk Factors: Reports None Home Oxygen Use: No Recent Stress Test: No Recent Echo/LV Function: No Current Antibiotic Use: Yes Current Asthma Medication Use: Yes Respiratory Distress: None Inadequate Respiratory Effort: No Dysphagia Present: No Stridor Present: No JVD Present: No Accessory Muscle Use: No Retractions: Not Present and Supraclavicular Diminished Breath Sounds: No Sinus Tenderness: None Grunting Respirations: No Kussmaul Respirations: No Differential Diagnoses: Bronchitis, Bronchospasm, URI and Influenza Review of Systems Review Of Systems Constitutional: Reports No symptoms Eyes: Reports No symptoms Ears, Nose, Mouth, Throat: Reports No symptoms Respiratory: Reports Cough, Short of air and Wheezing Cardiac: Reports No symptoms GI: Reports No symptoms : Reports No symptoms Musculoskeletal: Reports No symptoms Skin: Reports No symptoms Neurological: Reports No symptoms Endocrine: Reports No symptoms Hematologic/Lymphatic: Reports No symptoms All Other Systems: Reviewed and Negative [facility] Medical History Alzheimers disease (Acute) Bradycardia (Acute) Dementia (Acute) Dizzy spells (Acute) Dyslipidemia (Acute) Hernia (Acute) HTN (hypertension) (Acute) Skin cancer (melanoma) (Acute) Family History Father Gangrene Social History Smoking and tobacco status: Former smoker Alcohol intake: former Counseling given: No Physical Exam Physical Exam Appearance: Reports Ill-appearing Ill-appearing: Mild Pain Distress: None Eyes: Reports HUBER, EOMI and Conjunctiva clear ENT: Reports Ears normal, Nose normal, Oropharynx normal and TMs Occluded Neck: Supple Respiratory: Reports Breath sounds diminished, Respirations nonlabored and Wheezes Cardiovascular: Reports RRR GI/: Reports Soft, Nontender and No masses Musculoskeletal: Reports Normal strength, ROM intact, No edema and No calf tenderness Skin: Reports Warm, Dry and Normal color Neurological: Reports Sensation intact, Motor intact, Reflexes intact, Cranial nerves intact, Alert and Oriented Psychiatric: Reports Affect appropriate and Mood appropriate Physician Notification Case Discussed Physician Notified: Dr Rodriguez admission Time of Notification: 15:00 Critical Care Note Critical Care Note Total Time (mins): 30 Course Course Hematology/Chemistry: 09/07/19 14:00 09/07/19 14:00 Orders, Labs, Meds: Lab Review 09/07/19 09/07/19 09/07/19 13:50 14:00 14:00 WBC 15.74 H RBC 3.90 L Hgb 11.4 L Hct 35.5 L MCV 91.0 MCH 29.2 MCHC 32.1 RDW Coeff of Ladan 13.7 Plt Count 391 Immature Gran % (Auto) 1.8 Neut % (Auto) 91.0 H Lymph % (Auto) 4.6 L Weber % (Auto) 1.9 Eos % (Auto) 0.3 Baso % (Auto) 0.4 Immature Gran # (Auto) 0.3 Neut # (Auto) 14.3 H Lymph # (Auto) 0.7 Weber # (Auto) 0.3 L Eos # (Auto) 0.0 Baso # (Auto) 0.1 Puncture Site O2 Saturation ABG pH ABG pCO2 ABG pO2 ABG HCO3 ABG Total CO2 ABG Base Excess FiO2 % Sodium 135.4 Potassium 5.03 Chloride 101.0 Carbon Dioxide 23.7 Anion Gap 15.73 BUN 43.5 H Creatinine 1.50 H Estimated GFR (MDRD) 44.00 BUN/Creatinine Ratio 29.00 Glucose 113.8 H Calcium 8.99 Total Bilirubin 0.26 AST 29.7 ALT 18.1 Alkaline Phosphatase 59.9 Total Protein 7.24 Albumin 4.01 Globulin 3.23 Albumin/Globulin Ratio 1.24 Influ A Molecular Assay Negative by naat Influ B Molecular Assay Negative by naat 09/07/19 14:12 WBC RBC Hgb Hct MCV MCH MCHC RDW Coeff of Ladan Plt Count Immature Gran % (Auto) Neut % (Auto) Lymph % (Auto) Weber % (Auto) Eos % (Auto) Baso % (Auto) Immature Gran # (Auto) Neut # (Auto) Lymph # (Auto) Weber # (Auto) Eos # (Auto) Baso # (Auto) Puncture Site Rb O2 Saturation 94.0 L ABG pH 7.457 H ABG pCO2 33.7 L ABG pO2 65.0 L ABG HCO3 23.8 ABG Total CO2 25 ABG Base Excess 0 FiO2 % 21.0 Sodium Potassium Chloride Carbon Dioxide Anion Gap BUN Creatinine Estimated GFR (MDRD) BUN/Creatinine Ratio Glucose Calcium Total Bilirubin AST ALT Alkaline Phosphatase Total Protein Albumin Globulin Albumin/Globulin Ratio Influ A Molecular Assay Influ B Molecular Assay Orders Category Date Time Status ABG DRAW REQUEST Stat CARDIO 09/07/19 13:46 Completed EKG-(ED ONLY) Stat CARDIO 09/07/19 13:46 Completed NEBULIZER TREATMENT Stat CARDIO 09/07/19 13:49 Completed IV [ED IV/MEDIPORT/POWERPORT] .ONCE EMERGENCY 09/07/19 15:28 Active ABG Stat LAB 09/07/19 14:12 Completed BLOOD CULTURE Stat LAB 09/07/19 15:28 Ordered CBC W/ AUTO DIFF Stat LAB 09/07/19 14:00 Completed CMP [COMPREHENSIVE METABOLIC PANEL] Stat LAB 09/07/19 14:00 Completed FLU A & B MOLECULAR [FLU A/B MOLECULAR] Stat LAB 09/07/19 13:50 Completed LACTIC ACID Stat LAB 09/07/19 15:31 Ordered PROCALCITONIN Stat LAB 09/07/19 14:00 Received SPUTUM CULTURE Stat LAB 09/07/19 13:50 Ordered UA [URINALYSIS C & S IF INDICATED] Stat LAB 09/07/19 13:47 Ordered 0.9 % Sodium Chloride [Saline Flush] MEDS 09/07/19 15:28 Ordered 1 syr IVF PRN PRN Ceftriaxone/D5w 1 gm Premix [Rocephin 1 gm/50 ml D5w] MEDS 09/07/19 15:28 Active 1 gm in 50 ml IV ONCE Ipratropium/Albuterol Neb [Duoneb] MEDS 09/07/19 13:49 Discontinued 3 ml NEB ONCE STA Methylprednisolone Sod Succ/Pf [Solu-Medrol 125 mg] MEDS 09/07/19 15:28 Discontinued 125 mg IVP ONCE STA CHEST, 1V AP ONLY Stat RADS 09/07/19 13:46 Completed Medications Generic Name Dose Route Start Last Admin Trade Name Freq PRN Reason Stop Dose Admin CEFTRIAXONE/D5W 1 GM PREMIX 1 gm in 50 mls @ 75 mls/hr 09/07/19 15:28 Rocephin 1 Gm/50 Ml D5w IV 09/07/19 16:07 ONCE STA Sodium Chloride 1 syr 09/07/19 15:28 Saline Flush IVF PRN PRN To flush IV Discontinued Medications Generic Name Dose Route Start Last Admin Trade Name Freq PRN Reason Stop Dose Admin Albuterol/Ipratropium 3 ml 09/07/19 13:49 09/07/19 14:27 Duoneb NEB 09/07/19 13:50 3 ml ONCE STA Administration Methylprednisolone Sodium Succinate 125 mg 09/07/19 15:28 Solu-Medrol 125 Mg IVP 09/07/19 15:29 ONCE STA Vital Signs: Temp Pulse Resp BP Pulse Ox 09/07/19 13:14 98.6 F 79 20 136/67 93 L Discharge Plan Discharge Patient Disposition: ADMITTED INPATIENT Discharge Problem: Acute bronchitis, Dementia ED Provider: ALEXANDER SLOAN Condition: Stable
--- NOTE | 2019-09-07 14:47 | DI ---
EXAM: Chest one view HISTORY: Cough COMPARISON: 05/18/2019 TECHNIQUE: Single view of the chest was performed FINDINGS: The lungs are clear. There is no pleural effusion or pneumothorax. The heart is mildly e nlarged in size. The mediastinal contour is unchanged, noting atherosclerosis. There are no acute a bnormalities of the bones. Advanced degenerative changes of the shoulders. IMPRESSION: Cardiomegaly. No acute cardiopulmonary process.
[2019-09-07] MEDS ORDERED: SOLU-MEDROL 125 MG IVP STA (15:28)
[2019-09-07] MEDS ORDERED: ROCEPHIN 1 GM/50 ML D5W 1 GM/50 ML BAG IV STA (15:28)
[2019-09-07] MEDS ORDERED: XOPENEX 0.63 MG NEB PRN (15:56)
[2019-09-07] MEDS: SODIUM CHLORIDE 1,000 ML IV SCH (17:48)
[2019-09-07] MEDS: LOVENOX SUBCUT SCH (18:06)
[2019-09-07] MEDS: DUONEB NEB SCH (20:05)
[2019-09-07] MEDS ORDERED: DUONEB NEB SCH (21:00)
[2019-09-07 21:21] VITALS: BMI 25.0
[2019-09-07] MEDS: AZACTAM 1 GM in SODIUM CHLORIDE 50 ML IV SCH (21:28)
[2019-09-08] MEDS: DUONEB NEB SCH ×4 (04:20→19:55)
[2019-09-08 05:23] LABS: HEMATOCRIT 32.1 % (42.0-52.0)
[2019-09-08] MEDS: AZACTAM 1 GM in SODIUM CHLORIDE 50 ML IV SCH ×3 (06:12→20:36)
[2019-09-08] MEDS: LOVENOX SUBCUT SCH (09:09)
[2019-09-08] MEDS: ZESTRIL PO SCH (09:09)
[2019-09-08] MEDS: TOPROL XL PO SCH (09:09)
[2019-09-08] MEDS: NORVASC PO SCH (09:09)
[2019-09-08] MEDS: ASPIRIN CHEWABLE PO SCH (09:09)
[2019-09-08] MEDS: SODIUM CHLORIDE 1,000 ML IV SCH (11:47)
[2019-09-08] MEDS: ROCEPHIN 1 GM/50 ML D5W 1 GM/50 ML BAG IV SCH (13:29)
[2019-09-08] MEDS ORDERED: DECADRON 4 MG/ML SDV IM ONE (17:00)
[2019-09-08] MEDS: NON-FORMULARY MEDICATION TP SCH (20:37)
[2019-09-09] MEDS: SODIUM CHLORIDE 1,000 ML IV SCH ×3 (01:47→17:51)
[2019-09-09] MEDS: AZACTAM 1 GM in SODIUM CHLORIDE 50 ML IV SCH ×3 (04:12→20:01)
[2019-09-09] MEDS: DUONEB NEB SCH ×4 (04:25→19:36)
[2019-09-09 05:28] LABS: HEMATOCRIT 29.4 % (42.0-52.0)
[2019-09-09] MEDS ORDERED: DECADRON 4 MG/ML SDV IM SCH (09:00)
--- NOTE | 2019-09-09 09:11 | PCM.PROG ---
Attending Provider: ATTENDING PROVIDER: Dr. TATY BLANCO This patient is seen with Kristy Merlos, Nurse Practitioner. DATE OF SERVICE: 09/09/19 SUBJECTIVE: This 88 year old /WHITE M was hospitalized 09/07/19. The patient is resting comfortably. He is pleasantly confused. Still coughing. He is co mplaining of knee pain as usual. Urine is positive for Proteus. He has been eating well. REVIEW OF SYSTEMS: CONSTITUTIONAL: No night sweats. No fatigue, malaise, lethargy. No fever or chills. Weakness. HEENT: Eyes: No visual changes. No eye pain. No eye discharge. ENT: No runny nose. No epistaxis. No sinus pain. No odynophagia. No congestion. RESPIRATORY: Cough, no congestion. No hemoptysis. No shortness of breath. CARDIOVASCULAR: No angina symptoms. No CHF symptoms. No atypical chest pain for CAD. No palpitations. No orthopnea.. GASTROINTESTINAL: No abdominal pain. No nausea or vomiting. No diarrhea or constipation. No hematemesis. No hematochezia. GENITOURINARY: No urgency. No frequency. No dysuria. No hematuria. No obstructive symptoms. No discharge. No pain. No significant abnormal bleeding. MUSCULOSKELETAL: No musculoskeletal pain; no joint swelling. NEUROLOGICAL: Awake, alert, confusion. No headache. No neck pain. No syncope. No seizures. No dizziness. PSYCHIATRIC: Not anxious. No depression. No suicidal thoughts. No homicidal thoughts. SKIN: No rash. No lesions. No wounds. ENDOCRINE: No unexplained weight loss. No weight gain. HEMATOLOGIC/LYMPHATIC: No anemia. No purpura. No petechiae. No prolonged or excessive bleeding. No palpable lymph nodes. PHYSICAL EXAMINATION: GENERAL: The patient is awake, alert and oriented to person only, lying in bed in no distress. VITAL SIGNS: Temperature 97.8 F, Pulse 102, Respiratory Rate 20, BP 145/66, Pulse Ox 99% HEENT: Head normocephalic, atraumatic. Eyes: Extraocular muscles are intact. Pupils are equal, round and reactive to light and accommodation. Ears: No le sions. Nose appeared normal. Throat: No exudate or erythema. NECK: Supple. No JVD, no carotid bruit. No lymphadenopathy or thyromegaly. LUNGS: Diminished breath sounds with bilateral rhonchi. Clear to auscultation. Percussion note normal. Chest symmetrical. HEART: S1, S2, no S3. No murmurs. No cyanosis or clubbing. No ascites. Pulses: Dorsalis pedis and posterior tibial pulses +1 to +2 both sides. ABDOMEN: Soft. Non-tender. Bowel sounds active. No CVA tenderness. No mass felt. EXTREMITIES: No edema. Full range of motion of all extremities, equal. NEUROLOGIC: No focal deficit. Cranial nerves II through XII are grossly intact. No headache, no double vision or headache. SKIN: Not dry. Intact. Turgor-normal. LYMPHATIC: No palpable lymph nodes/no lymphedema. MUSCULOSKELETAL: Normal joints with no swelling. Muscle tone is normal. LAB REVIEW: 09/09/19 04:44 09/09/19 04:44 09/09/19 04:44: Sodium 136.8, Potassium 4.79, Chloride 107.7 H, Carbon Dioxide 20.1 L, Anion Gap 13.79, BUN 56.2 H, Creatinine 1.14 H, Estimated GFR (MDRD) 61.00, BUN/Creatinine Ratio 49.29, Glucose 117.6 H, Calcium 8.39 L, Total Bilirubin 0.21, AST 28.9, ALT 22.5, Alkaline Phosphatase 47.5 L, Total Protein 6.14 L, Albumin 3.40 L, Globulin 2.74, Albumin/Globulin Ratio 1.24 09/09/19 04:44: WBC 22.46 H, RBC 3.21 L, Hgb 9.6 L, Hct 29.4 L, MCV 91.6, MCH 29.9, MCHC 32.7, RDW Coeff of Ladan 13.8, Plt Count 410, Immature Gran % (Auto) 1.6, Neut % (Auto) 87.8 H, Lymph % (Auto) 5.3 L, [place] % (Auto) 5.1, Eos % (Auto) 0.0, Baso % (Auto) 0.2, Immature Gran # (Auto) 0.4, Neut # (Auto) 19.7 H, Lymph # (Auto) 1.2, [place] # (Auto) 1.2, Eos # (Auto) 0.0, Baso # (Auto) 0.0 ASSESSMENT: Please see below. 1. UTI, positive for Proteus 2. Acute bronchitis 3. COPD 4. Renal Azotemia 5. Underlined chronic kidney disease stage 3 PLAN: 1. Repeat chest x-ray 2. Tussionex one teaspoon BID PRN Plan and coordination of the patient's care discussed in the presence of Dairy Scientist and nurse. SCRIBED BY: Alex FERROist scribed while in presence of service performed by Dr. Blanco/Kristy Merlos APRN on 09/09/19 ([id number])
[2019-09-09] MEDS: ROCEPHIN 1 GM/50 ML D5W 1 GM/50 ML BAG IV SCH (09:53)
[2019-09-09] MEDS: NON-FORMULARY MEDICATION TP SCH ×2 (09:55→20:03)
[2019-09-09] MEDS: TUSSIONEX PO PRN (09:56)
[2019-09-09] MEDS: ASPIRIN CHEWABLE PO SCH (09:57)
[2019-09-09] MEDS: TOPROL XL PO SCH (09:57)
[2019-09-09] MEDS: ZESTRIL PO SCH (09:58)
[2019-09-09] MEDS: NORVASC PO SCH (09:58)
[2019-09-09] MEDS: LOVENOX SUBCUT SCH (10:00)
--- NOTE | 2019-09-09 12:20 | DI ---
EXAM: Chest one view HISTORY: Bronchitis COMPARISON: 09/07/2019 TECHNIQUE: Single view of the chest was performed FINDINGS: Stable heart size and mediastinal contour. Atherosclerotic calcifications. The lungs are clear. No pleural effusion or pneumothorax. No acute abnormalities of the bones. Advanced osteoart hritis of the bilateral shoulders. IMPRESSION: No acute cardiopulmonary process or significant interval change.
[2019-09-10] MEDS: DUONEB NEB SCH ×4 (04:53→20:30)
[2019-09-10] MEDS: AZACTAM 1 GM in SODIUM CHLORIDE 50 ML IV SCH (05:05)
[2019-09-10] MEDS ORDERED: DECADRON 4 MG/ML SDV IM STA (08:59)
[2019-09-10] MEDS ORDERED: ULTRAM PO SCH (09:00)
[2019-09-10] MEDS: ULTRAM PO SCH ×2 (09:08→20:11)
[2019-09-10] MEDS ORDERED: PREDNISONE PO SCH (09:30)
[2019-09-10] MEDS: ZESTRIL PO SCH (09:50)
[2019-09-10] MEDS: NON-FORMULARY MEDICATION TP SCH ×2 (09:50→20:11)
[2019-09-10] MEDS: NORVASC PO SCH (09:50)
[2019-09-10] MEDS: ASPIRIN CHEWABLE PO SCH (09:50)
[2019-09-10] MEDS: TOPROL XL PO SCH (09:50)
[2019-09-10] MEDS: SODIUM CHLORIDE 1,000 ML IV SCH ×2 (09:58→23:10)
[2019-09-10] MEDS: ROCEPHIN 1 GM/50 ML D5W 1 GM/50 ML BAG IV SCH (09:59)
[2019-09-10] MEDS: LOVENOX SUBCUT SCH (10:10)
--- NOTE | 2019-09-10 10:27 | PCM.PROG ---
Attending Provider: ATTENDING PROVIDER: Dr. TATY BLANCO This patient is seen with Kristy Merlos, Nurse Practitioner. DATE OF SERVICE: 09/10/19 SUBJECTIVE: This 88 year old /WHITE M was hospitalized 09/07/19. The patient is lying in bed resting. He is still having significant pain, having some moaning while sleeping. He has pain in the knees due to severe arthritis. White count is improved. Hemoglobin and hematocrit are improving. REVIEW OF SYSTEMS: CONSTITUTIONAL: No night sweats. No fatigue, malaise, lethargy. No fever or chills. HEENT: Eyes: No visual changes. No eye pain. No eye discharge. ENT: No runny nose. No epistaxis. No sinus pain. No odynophagia. No congestion. RESPIRATORY: Positive for cough and shortness of breath. No hemoptysis. CARDIOVASCULAR: No angina symptoms. No CHF symptoms. No atypical chest pain for CAD. No palpitations. No orthopnea.. GASTROINTESTINAL: No abdominal pain. No nausea or vomiting. No diarrhea or constipation. No hematemesis. No hematochezia. GENITOURINARY: No urgency. No frequency. No dysuria. No hematuria. No obst ructive symptoms. No discharge. No pain. No significant abnormal bleeding. MUSCULOSKELETAL: Knee pain. NEUROLOGICAL: The patient is resting. No headache. No neck pain. No syncope. No seizures. No dizziness. PSYCHIATRIC: Not anxious. No depression. No suicidal thoughts. No homicidal thoughts. SKIN: No rash. No lesions. No wounds. ENDOCRINE: No unexplained weight loss. No weight gain. HEMATOLOGIC/LYMPHATIC: No anemia. No purpura. No petechiae. No prolonged or excessive bleeding. No palpable lymph nodes. PHYSICAL EXAMINATION: GENERAL: The patient is resting lying/sitting in bed in no distress. VITAL SIGNS: Temperature 97.7 F, Pulse 84, Respiratory Rate 18, BP 140/60, Pulse Ox 100% HEENT: Head normocephalic, atraumatic. Eyes: Extraocular muscles are intact. Pupils are equal, round and reactive to light and accommodation. Ears: No lesions. Nose appeared normal. Throat: No exudate or erythema. NECK: Supple. No JVD, no carotid bruit. No lymphadenopathy or thyromegaly. LUNGS: Diminished breath sounds with bilateral expiratory wheeze. Percussion note normal. Chest symmetrical. HEART: S1, S2, no S3. No murmurs. No cyanosis or clubbing. No ascites. Pulses: Dorsalis pedis and posterior tibial pulses +1 to +2 both sides. ABDOMEN: Soft. Non-tender. Bowel sounds active. No CVA tenderness. No mass felt. EXTREMITIES: No edema. Full range of motion of all extremities, equal. NEUROLOGIC: No focal deficit. Cranial nerves II through XII are grossly intact. No headache, no double vision or headache. SKIN: Not dry. Intact. Turgor-normal. LYMPHATIC: No palpable lymph nodes/no lymphedema. MUSCULOSKELETAL: Normal joints with no swelling. Muscle tone is normal. LAB REVIEW: 09/10/19 04:55 09/10/19 04:55 09/10/19 04:55: Sodium 136.4, Potassium 4.34, Chloride 108.3 H, Carbon Dioxide 21.9 L, Anion Gap 10.54, BUN 48.8 H, Creatinine 1.22 H, Estimated GFR (MDRD) 56.00, BUN/Creatinine Ratio 40.00, Glucose 91.9, Calcium 8.18 L, Total Bilirubin 0.22, AST 27.6, ALT 24.0, Alkaline Phosphatase 53.9 L, Total Protein 6.14 L, Albumin 3.31 L, Globulin 2.83, Albumin/Globulin Ratio 1.16 09/10/19 04:55: WBC 20.77 H, RBC 3.26 L, Hgb 9.6 L, Hct 30.0 L, MCV 92.0, MCH 29.4, MCHC 32.0, RDW Coeff of Ladan 13.9, Plt Count 417, Neutrophils % (Manual) 72.0, Band Neutrophils % 7.0 H, Lymphocytes % (Manual) 9.0 L, Monocytes % (Manual) 8.0, Eosinophils % (Manual) 0.0, Basophils % (Manual) 0.0, M etamyelocytes % 2.0, Myelocytes % 2.0 H, Anisocytosis Not present ASSESSMENT: Please see below. 1. UTI, positive for Proteus 2. Acute bronchitis 3. COPD 4. Renal Azotemia - improving 5. Underlined chronic kidney disease stage 3 6. Bilateral knee OA PLAN: 1. D/C Azactam. 2. Tramadol 50 mg b.i.d. EDUARD. 3. Rocephin - continue another four days. 4. Decadron 1 cc today. 5. Begin Prednisone 10 mg daily tomorrow. Plan and coordination of the patient's care discussed in the presence of Beater Dumper and nurse. CONDITION: Stable. SCRIBED BY: SANDRO STARKS Terrapin Fisher scribed while in presence of service performed by Dr. Blanco/Kristy Merlos APRN on 09/10/19 (08)
--- NOTE | 2019-09-10 10:51 | HP ---
DATE OF SERVICE: 09/07/19 HISTORY OF PRESENT ILLNESS: 88-year-Old male who is a resident at [facility] was brought in with an 02 saturation of 83% and complaints of shortness of breath. He had previously been on a Z-pack and Prednisone. PAST MEDICAL HISTORY: Bradycardia Bradyarrhythmia Hypertension Recent UTI Dyslipidemia Alzheimer's dementia BPH Chronic kidney disease, Stage 3 Knee osteoarthritis Leg weakness PAST SURGICAL HISTORY: Hernia Bilateral knee arthroplasty Cataracts Cancer removal on the ear and nose REVIEW OF SYSTEMS: CONSTITUTIONAL: No night sweats. No fatigue, malaise, lethargy. No fever or chills. HEENT: Eyes: No visual changes. No eye pain. No eye discharge. ENT: No runny nose. No epistaxis. No sinus pain. No sore throat. No odynophagia. No ear pain. No congestion. RESPIRATORY: Positive for cough andcongestion. Positive for shortness of breath. No hemoptysis. CARDIOVASCULAR: No angina symptoms. No CHF symptoms. No atypical chest pain for CAD. No palpitations. No PND. No orthopnea. GASTROINTESTINAL: No abdominal pain. No nausea or vomiting. No diarrhea or constipation. No hematemesis. No hematochezia. GENITOURINARY: No urgency. No frequency. No dysuria. No hematuria. No obstructive symptoms. No discharge. No pain. No significant abnormal bleeding. MUSCULOSKELETAL: No musculoskeletal pain. No joint swelling. No arthritis. NEUROLOGICAL: No headache. No neck pain. No syncope. No seizures. No dizziness. PSYCHIATRIC: Not anxious. No depression. No suicidal thoughts. No homicidal thoughts. SKIN: No rash. No lesions. No wounds. ENDOCRINE: No unexplained weight loss. No weight gain. HEMATOLOGIC/LYMPHATIC: No anemia. No purpura. No petechiae. No prolonged or excessive bleeding. No palpable lymph nodes. PERSONAL/FAMILY/SOCIAL HISTORY: He is , resides at the senior care. He is a former smoker. MEDICATIONS: (HOME) Metoprolol 50 mg p.o. daily Aspirin 81 mg p.o. daily Acetaminophen 650 mg p.o. q.4h p.r.n. Lisinopril 20 mg p.o. daily Azithromycin 250 mg p.o. daily Mupirocin 2% ointment one application topical daily Amlodipine 10 mg p.o. bedtime Prednisone 10 mg p.o. daily Ipratropium Albuterol 0.5 mg - 3 mg 3 mL inhalation t.i.d. ALLERGIES: NKDA PHYSICAL EXAMINATION: VITAL SIGNS: Temperature 98.6, pulse 79, respirations 20, blood pressure 136/77, pulse ox 93%. HEENT: Head normocephalic, atraumatic. Eyes: Extraocular muscles are intact. Pupils are equal, round and reactive to light and accommodation. Ears: No lesions. Nose appeared normal. Throat: No exudate or erythema. NECK: Supple. No JVD, no carotid bruit. No lymphadenopathy or thyromegaly. LUNGS: Diminished breath sounds. Clear to auscultation. Percussion note normal. Chest symmetrical. HEART: S1, S2, no S3. No murmur. No cyanosis or clubbing. No ascites. Pulses: Dorsalis pedis and posterior tibial pulses +1 to +2 bilaterally. ABDOMEN: Soft. Nontender. Bowel sounds active. No CVA tenderness. No mass felt. EXTREMITIES: No edema. Full range of motion of all extremities, equal. NEUROLOGIC: No focal deficit. Cranial nerves II through XII are grossly intact. No headache, no double vision or headache. SKIN: Not dry. Intact. Turgor - normal. LYMPHATIC: No palpable lymph nodes/no lymphedema. MUSCULOSKELETAL: Normal joints with no swelling. Muscle tone is normal. LABS: White count 15.74, hemoglobin 11.4, hematocrit 35.5, platelets 391. Sodium 135.4, potassium 5.03, BUN 43.5, creatinine 1.50, AST 29.7, ALT 18.8, ABGs on room air 02 saturation 94, pH 7.457, c02 33.7, p02 65, bicarb 23.8. Total C02 25. X-ray of the chest was normal. ASSESSMENT: 1. Acute respiratory failure. 2. Acute bronchitis. 3. Dehydration. 4. Chronic kidney disease Stage 3. 5. Recurrent UTI. 6. Hypertension. PLAN: 1. Admit to [facility]. 2. Routine telemetry. 3. CBC, CMP daily. 4. Continue home medications. 5. 02 at 1 to 2L/NC as needed. 6. 1 cc Decadron IM daily. 7. Rocephin 1 gm IV daily. 8. Duonebs q.6 EDUARD. 9. UA. 10. Regular diet. TIME SPENT: More than 70 minutes. MTDD
[2019-09-10] MEDS: TUSSIONEX PO PRN ×2 (11:08→23:07)
[2019-09-10] MEDS: TYLENOL PO PRN (23:07)
[2019-09-11] MEDS: DUONEB NEB SCH ×4 (04:50→19:30)
[2019-09-11 05:16] LABS: HEMATOCRIT 31.1 % (42.0-52.0)
[2019-09-11] MEDS: ROCEPHIN 1 GM/50 ML D5W 1 GM/50 ML BAG IV SCH (08:25)
[2019-09-11] MEDS: NORVASC PO SCH (08:28)
[2019-09-11] MEDS: ASPIRIN CHEWABLE PO SCH (08:28)
[2019-09-11] MEDS: TOPROL XL PO SCH (08:28)
[2019-09-11] MEDS: ULTRAM PO SCH ×2 (08:28→20:12)
[2019-09-11] MEDS: PREDNISONE PO SCH (08:28)
[2019-09-11] MEDS: ZESTRIL PO SCH (08:28)
[2019-09-11] MEDS: NON-FORMULARY MEDICATION TP SCH ×2 (08:29→20:11)
[2019-09-11] MEDS: LOVENOX SUBCUT SCH (08:30)
[2019-09-11] MEDS ORDERED: LASIX IVP STA (10:57)
[2019-09-11] MEDS: SODIUM CHLORIDE 1,000 ML IV SCH (10:58)
[2019-09-11] MEDS ORDERED: LIDOCAINE HCL 1% SDV IM STA (16:21)
[2019-09-11] MEDS: TESSALON PERLES PO SCH ×2 (16:44→20:12)
[2019-09-11] MEDS: TUSSIONEX PO PRN (23:26)
[2019-09-12] MEDS: DUONEB NEB SCH ×4 (04:30→20:58)
[2019-09-12 04:52] LABS: HEMATOCRIT 29.2 % (42.0-52.0)
[2019-09-12] MEDS ORDERED: ROCEPHIN 1 GM/50 ML D5W 1 GM/50 ML BAG IV SCH (09:00)
[2019-09-12] MEDS: NON-FORMULARY MEDICATION TP SCH ×2 (09:34→20:22)
[2019-09-12] MEDS: ROCEPHIN 1 GM VIAL IM SCH (09:35)
[2019-09-12] MEDS: ASPIRIN CHEWABLE PO SCH (09:35)
[2019-09-12] MEDS: LIDOCAINE HCL 1% SDV IM SCH (09:35)
[2019-09-12] MEDS: ULTRAM PO SCH ×2 (09:36→20:22)
[2019-09-12] MEDS: PREDNISONE PO SCH (09:36)
[2019-09-12] MEDS: TOPROL XL PO SCH (09:36)
[2019-09-12] MEDS: NORVASC PO SCH (09:36)
[2019-09-12] MEDS: LOVENOX SUBCUT SCH (09:36)
[2019-09-12] MEDS: ZESTRIL PO SCH (09:36)
[2019-09-12] MEDS: TESSALON PERLES PO SCH ×3 (09:36→20:22)
[2019-09-12] MEDS: TYLENOL PO PRN ×2 (14:10→18:14)
[2019-09-13] MEDS: DUONEB NEB SCH ×2 (04:36→10:16)
[2019-09-13 05:23] LABS: HEMATOCRIT 31.4 % (42.0-52.0)
[2019-09-13 06:07] VITALS: BP 171/86; TEMP 97.5
[2019-09-13] MEDS: ASPIRIN CHEWABLE PO SCH (08:41)
[2019-09-13] MEDS: TESSALON PERLES PO SCH (08:41)
[2019-09-13] MEDS: ULTRAM PO SCH (08:42)
[2019-09-13] MEDS: NORVASC PO SCH (08:42)
[2019-09-13] MEDS: ZESTRIL PO SCH (08:43)
[2019-09-13] MEDS: PREDNISONE PO SCH (08:43)
[2019-09-13] MEDS: TOPROL XL PO SCH (08:43)
[2019-09-13] MEDS: LIDOCAINE HCL 1% SDV IM SCH (08:45)
[2019-09-13] MEDS: ROCEPHIN 1 GM VIAL IM SCH (08:45)
[2019-09-13] MEDS: LOVENOX SUBCUT SCH (08:46)
--- NOTE | 2019-09-13 09:27 | PCM.PROG ---
Attending Provider: ATTENDING PROVIDER: Dr. TATY BLANCO DATE OF SERVICE: 09/13/19 SUBJECTIVE: This 88 year old /WHITE M was hospitalized 09/07/19 with acute bronchitis and respiratory failure. The patient's condition steadily improved with antibiotics, steroids and nebs. Appetite is good. He feeds himself. He has some restriction of right shoulder movement. Cardiovascular status during stay in hospital has been normal. Blood pressure has been borderline high. He is usually alert but disoriented. He has not able to walk for the last few years and has been in a wheelchair. REVIEW OF SYSTEMS: CONSTITUTIONAL: No night sweats. No fatigue, malaise, lethargy. No fever or chills. HEENT: Eyes: No visual changes. No eye pain. No eye discharge. ENT: No runny nose. No epistaxis. No sinus pain. No odynophagia. No congestion. RESPIRATORY: No cough, no congestion. No hemoptysis. No shortness of breath. CARDIOVASCULAR: No angina symptoms. No CHF symptoms. No atypical chest pain for CAD. No palpitations. No orthopnea.. GASTROINTESTINAL: No abdominal pain. No nausea or vomiting. No diarrhea or constipation. No hematemesis. No hematochezia. GENITOURINARY: No urgency. No frequency. No dysuria. No hematuria. No obstructive symptoms. No discharge. No pain. No significant abnormal bleeding. MUSCULOSKELETAL: No musculoskeletal pain; no joint swelling. NEUROLOGICAL: Awake, alert, oriented to time, place and person. No headache. No neck pain. No syncope. No seizures. No dizziness. PSYCHIATRIC: Not anxious. No depression. No suicidal thoughts. No homicidal thoughts. SKIN: No rash. No lesions. No wounds. ENDOCRINE: No unexplained weight loss. No weight gain. HEMATOLOGIC/LYMPHATIC: No anemia. No purpura. No petechiae. No prolonged or excessive bleeding. No palpable lymph nodes. PHYSICAL EXAMINATION: GENERAL: The patient is awake, alert and oriented, lying/sitting in bed in no distress. VITAL SIGNS: Temperature 97.5 F, Pulse 64, Respiratory Rate 16, BP 171/86, Pulse Ox 98% HEENT: Head normocephalic, atraumatic. Eyes: Extraocular muscles are intact. Pupils are equal, round and reactive to light and accommodation. Ears: No lesions. Nose appeared normal. Throat: No exudate or erythema. NECK: Supple. No JVD, no carotid bruit. No lymphadenopathy or thyromegaly. LUNGS: Good air entry. Mild expiratory wheeze. Percussion note normal. Chest symmetrical. HEART: S1, S2, no S3. No murmurs. No cyanosis or clubbing. No ascites. Pulses: Dorsalis pedis and posterior tibial pulses +1 to +2 both sides. ABDOMEN: Soft. Non-tender. Bowel sounds active. No CVA tenderness. No mass felt. EXTREMITIES: No pedal edema. Full range of motion of all extremities, equal. NEUROLOGIC: No focal deficit. Cranial nerves II through XII are grossly intact. No headache, no double vision or headache. SKIN: Warm and dry. Intact. Turgor-normal. LYMPHATIC: No palpable lymph nodes/no lymphedema. MUSCULOSKELETAL: Normal joints with no swelling. Muscle tone is normal. LAB REVIEW: 09/13/19 05:07 09/13/19 05:07 09/13/19 05:07: Sodium 134.5, Potassium 4.39, Chloride 106.1, Carbon Dioxide 24.1, Anion Gap 8.69, BUN 38.8 H, Creatinine 1.00, Estimated GFR (MDRD) 71.00, BUN/Creatinine Ratio 38.80, Glucose 87.0, Calcium 8.22 L, Total Bilirubin 0.23, AST 79.5 H D, ALT 91.2 H D, Alkaline Phosphatase 44.7 L, Total Protein 5.59 L, Albumin 3.11 L, Globulin 2.48, Albumin/Globulin Ratio 1.25 09/13/19 05:07: WBC 14.24 H, RBC 3.34 L, Hgb 10.1 L, Hct 31.4 L, MCV 94.0, MCH 30.2, MCHC 32.2, RDW Coeff of [place] 13.9, Plt Count 326, Neutrophils % (Manual) 65.0, Lymphocytes % (Manual) 20.0, Monocytes % (Manual) 7.0, Eosinophils % (Manual) 2.0, Metamyelocytes % 3.0 H, Myelocytes % 2.0 H, Anisocytosis Not present ASSESSMENT: Please see below. 1. Acute bronchitis/pneumonitis seems to have resolved clinically. He still has chronic cough, which seems to be from aspiration and usually coughs while he eats. PLAN: 1. The son is aware of the fact that the patient's condition is overall declining. 2. The patient is a DNR. 3. [facility] with [facility], nebs treatment and steroids. 4. Physical Therapy should be done on right shoulder so that he can at least continue to feed himself. Plan and coordination of the patient's care discussed in the presence of Camp Dishwasher and nurse. CONDITION: STABLE; PROGNOSIS IS POOR. SCRIBED BY: SANDRO STARKS Final Inspector Movement Assembly scribed while in presence of service performed by Dr. TATY BLANCO on 09/13/19 ([id number])
--- NOTE | 2019-09-13 09:35 | DS ---
DATE OF SERVICE: 09/13/19 FINAL DIAGNOSIS: 1. ACUTE BRONCHITIS- IMPROVED 2. COPD- STABLE 3. RENAL AZOTEMIA - IMPROVING 4. UTI, POSITIVE FOR PROTEUS- IMPROVED 5. UNDERLINED CHRONIC KIDNEY DISEASE STAGE 3- MANAGED 6. BILATERAL KNEE OA- MANAGED HISTORY: HYPERTENSION ALZHEIMER'S DYSLIPIDEMIA BPH CHRONIC KIDNEY DISEASE, STAGE 3 OSETOARTHRITIS- GENERALIZED BILATERAL KNEE OA SHORTNESS OF BREATH INCONTINENCE AND FREQUENCY OF URINATION SURGICAL PROCEDURES: HERNIA REPAIR BILATERAL KNEE ARTHROPLASTY - PATIENT REFUSED TO HAVE PROCEDURE CANCER ON EARS/ NOSE REMOVED CATARACTS RT GROIN SURGERY TWO YEARS AGO LAST VITALS Temp Pulse Resp BP Pulse Ox 97.5 F L 64 16 171/86 H 98 09/13/19 06:00 09/13/19 06:00 09/13/19 06:00 09/13/19 06:00 09/13/19 06:00 DISCHARGE INSTRUCTIONS: 1. DISCHARGE BACK TO [facility] TODAY SEPTEMBER 13, 2019 2. CBC AND CMP IN A WEEK AND THEN EVERY 3 MONTHS 3. LIPIDS, TSH AND A1C EVERY 6 MONTHS, ALL TO BE TAKEN TO [facility] 4. CODE STATUS: DO NOT RESUSCITATE MEDICATIONS AT DISCHARGE: Acetaminophen (Tylenol) 650 mg PO Q4H PRN PRN Reason: Fever >101 Last Admin: 09/12/19 18:14 Dose: 650 mg Documented by: Albuterol/Ipratropium (Duoneb) 3 ml NEB TID [facility] Last Admin: 09/13/19 04:36 Dose: 3 ml Documented by: Amlodipine Besylate (Norvasc) 10 mg PO DAILY [facility] @ BEDTIME Last Admin: 09/13/19 08:42 Dose: 10 mg Documented by: Aspirin (Aspirin Chewable) 81 mg PO DAILYWM [facility] Last Admin: 09/13/19 08:41 Dose: 81 mg Documented by: Metoprolol Succinate (Toprol Xl) 50 mg PO DAILY [facility] Last Admin: 09/13/19 08:43 Dose: 50 mg Documented by: Non-Formulary Medication (Non-Formulary Medication) 1 each TP BID [facility] Last Admin: 09/12/19 20:22 Dose: 1 each Documented by: Prednisone (Prednisone) 10 mg PO DAILYWM [facility] X 5 DAYS Last Admin: 09/13/19 08:43 Dose: 10 mg Documented by: Tramadol HCl (Ultram) 50 mg PO BID [facility] Last Admin: 09/13/19 08:42 Dose: 50 mg Documented by: KEFLEX 500 MG PO BID X 5 DAYS ZESTORETIC 20/12.5 MG PO 2 TABS IN THE AM ALLERGIES No Known Allergies Allergy (Verified 09/07/19 13:37) NEW PRESCRIPTIONS: PREDNISONE 10 MG PO DAILY X 5 DAYS KEFLEX 500 MG PO BID X 5 DAYS ZESTORETIC 20/12.5 MG PO 2 TABS IN THE AM TRAMADOL 50 MG PO BID DISCONTINUED MEDICATIONS: 1). LISINOPRIL 2). ZITHROMAX DIET INSTRUCTIONS: 2 GM SODIUM WITH BOOST SUPPLEMENTS T.I.D. DIETARY CONSULT PROTEIN 5.59, ALBUMIN 3.11 ACTIVITY: ACTIVITY UP IN CHAIR FOR MEALS AND MUST BE FEED FOR NOW, PT, OT AND ACCOUNT LEADER EVALS SMOKING: NON-APPLICABLE DISEASE SPECIFIC EDUCATION: ARTHRITIC PAIN UTI BRONCHITIS PROTEIN SUPPLEMENT LAB REVIEW: 09/13/19 05:07: Sodium 134.5, Potassium 4.39, Chloride 106.1, Carbon Dioxide 24.1, Anion Gap 8.69, BUN 38.8 H, Creatinine 1.00, Estimated GFR (MDRD) 71.00, BUN/Creatinine Ratio 38.80, Glucose 87.0, Calcium 8.22 L, Total Bilirubin 0.23, AST 79.5 H D, ALT 91.2 H D, Alkaline Phosphatase 44.7 L, Total Protein 5.59 L, Albumin 3.11 L, Globulin 2.48, Albumin/Globulin Ratio 1.25 09/13/19 05:07: WBC 14.24 H, RBC 3.34 L, Hgb 10.1 L, Hct 31.4 L, MCV 94.0, MCH 30.2, MCHC 32.2, RDW Coeff of Ladan 13.9, Plt Count 326, Neutrophils % (Manual) 65.0, Lymphocytes % (Manual) 20.0, Monocytes % (Manual) 7.0, Eosinophils % (Manual) 2.0, Metamyelocytes % 3.0 H, Myelocytes % 2.0 H, Anisocytosis Not present IMAGE REVIEW: EXAM: Chest one view 09/09/2019 HISTORY: Bronchitis COMPARISON: 09/07/2019 TECHNIQUE: Single view of the chest was performed FINDINGS: Stable heart size and mediastinal contour. Atherosclerotic calcifications. The lungs are clear. No pleural effusion or pneumothorax. No acute abnormalities of the bones. Advanced osteoarthritis of the bilateral shoulders. IMPRESSION: No acute cardiopulmonary process or significant interval change. HOSPITAL COURSE: This 88-year-old /White male was hospitalized with acute bronchitis, COPD, and respiratory failure. He was treated in hospital with IV antibiotics, steroids and nebs. Condition improved. Cardiovascular status is stable. The patient is able to feed himself. Appetite is acceptable. The patient's systolic blood pressure has been elevated. He has been on Amlodipine 10 mg daily, Lisinopril 20 mg. Ultram is new medication added for pain. Will give Zestoretic 20/2.5 mg two tablets in the morning. Norvasc will be given at night-time. He is continue Norvasc. Toprol will be continued. The patient's condition is stable. Prognosis is guarded. The patient is DNR. TIME SPENT: More than 60 minutes. MTDD
--- NOTE | 2019-09-13 09:39 | PN ---
BILLING 09/07/19 ADMISSION DAY LEVEL 5 09/08/19 INTERMEDIATE 09/09/19 INTERMEDIATE 09/10/19 INTERMEDIATE 09/11/19 INTERMEDIATE 09/12/19 INTERMEDIATE 09/13/19 DISCHARGE MTDD
[2019-09-13] MEDS: NON-FORMULARY MEDICATION TP SCH (10:17)
--- NOTE | 2019-09-13 11:22 | CM.DICTOOL ---
ADMISSION: 09/07/19 15:36 DISCHARGE: SEPTEMBER 13, 2019 DATE OF SERVICE: 09/13/19 FINAL DIAGNOSIS ACUTE BRONCHITIS- IMPROVED COPD- STABLE RENAL AZOTEMIA - IMPROVING UTI, POSITIVE FOR PROTEUS- IMPROVED UNDERLINED CHRONIC KIDNEY DISEASE STAGE 3- MANAGED BILATERAL KNEE OA- MANAGED HISTORY: HYPERTENSION ALZHEIMER'S DYSLIPIDEMIA BPH CHRONIC KIDNEY DISEASE, STAGE 3 OSETOARTHRITIS- GENERALIZED BILATERAL KNEE OA SHORTNESS OF BREATH INCONTINENCE AND FREQUENCY OF URINATION SURGICAL PROCEDURES: HERNIA REPAIR BILATERAL KNEE ARTHROPLASTY - PATIENT REFUSED TO HAVE PROCEDURE CANCER ON EARS/ NOSE REMOVED CATARACTS RT GROIN SURGERY TWO YEARS AGO LAST VITALS Temp Pulse Resp BP Pulse Ox 97.5 F L 64 16 171/86 H 98 09/13/19 06:00 09/13/19 06:00 09/13/19 06:00 09/13/19 06:00 09/13/19 06:00 TAKE THESE MEDICATIONS AT HOME Acetaminophen (Tylenol) 650 mg PO Q4H PRN PRN Reason: Fever >101 Last Admin: 09/12/19 18:14 Dose: 650 mg Documented by: Albuterol/Ipratropium (Duoneb) 3 ml NEB TID [facility] Last Admin: 09/13/19 04:36 Dose: 3 ml Documented by: Amlodipine Besylate (Norvasc) 10 mg PO DAILY [facility] @ BEDTIME Last Admin: 09/13/19 08:42 Dose: 10 mg Documented by: Aspirin (Aspirin Chewable) 81 mg PO DAILYWM [facility] Last Admin: 09/13/19 08:41 Dose: 81 mg Documented by: Metoprolol Succinate (Toprol Xl) 50 mg PO DAILY [facility] Last Admin: 09/13/19 08:43 Dose: 50 mg Documented by: Non-Formulary Medication (Non-Formulary Medication) 1 each TP BID [facility] Last Admin: 09/12/19 20:22 Dose: 1 each Documented by: Prednisone (Prednisone) 10 mg PO DAILYWM [facility] X 5 DAYS Last Admin: 09/13/19 08:43 Dose: 10 mg Documented by: Tramadol HCl (Ultram) 50 mg PO BID [facility] Last Admin: 09/13/19 08:42 Dose: 50 mg Documented by: KEFLEX 500 MG PO BID X 5 DAYS ZESTORETIC 20/12.5 MG PO 2 TABS IN THE AM ALLERGIES No Known Allergies Allergy (Verified 09/07/19 13:37) DISCONTINUED MEDICATIONS 1). LISINIPRIL 2). ZITHROMAX NEW PRESCRIPTIONS: PREDNISONE 10 MG PO DAILY X 5 DAYS KEFLEX 500 MG PO BID X 5 DAYS ZESTORETIC 20/12.5 MG PO 2 TABS IN THE AM TRAMADOL 50 MG PO BID SMOKING: NON- APPLICABLE DISEASE SPECIFIC EDUCATION: ARTHRITIC PAIN UTI BRONCHITIS PROTIEN SUPPLEMENT LAB REVIEW: 09/13/19 05:07 09/13/19 05:07 09/13/19 05:07: Sodium 134.5, Potassium 4.39, Chloride 106.1, Carbon Dioxide 24.1, Anion Gap 8.69, BUN 38.8 H, Creatinine 1.00, Estimated GFR (MDRD) 71.00, BUN/Creatinine Ratio 38.80, Glucose 87.0, Calcium 8.22 L, Total Bilirubin 0.23, AST 79.5 H D, ALT 91.2 H D, Alkaline Phosphatase 44.7 L, Total Protein 5.59 L, Albumin 3.11 L, Globulin 2.48, Albumin/Globulin Ratio 1.25 09/13/19 05:07: WBC 14.24 H, RBC 3.34 L, Hgb 10.1 L, Hct 31.4 L, MCV 94.0, MCH 30.2, MCHC 32.2, RDW Coeff of Ladan 13.9, Plt Count 326, Neutrophils % (Manual) 65.0, Lymphocytes % (Manual) 20.0, Monocytes % (Manual) 7.0, Eosinophils % (Manual) 2.0, Metamyelocytes % 3.0 H, Myelocytes % 2.0 H, Anisocytosis Not present IMAGE REVIEW: EXAM: Chest one view 09/09/2019 HISTORY: Bronchitis COMPARISON: 09/07/2019 TECHNIQUE: Single view of the chest was performed FINDINGS: Stable heart size and mediastinal contour. Atherosclerotic calcifications. The lungs are clear. No pleural effusion or pneumothorax. No acute abnormalities of the bones. Advanced osteoarthritis of the bilateral shoulders. IMPRESSION: No acute cardiopulmonary process or significant interval change. PLAN: DISCHARGE BACK TO [facility] TODAY SEPTEMBER 13, 2019 ACTIVITY UP IN CHAIR FOR MEALS AND MUST BE FEED FOR NOW, PT, OT AND [employer] EVALS DIET: 2 GRAM SODIUM WITH BOOST SUPPLEMENTS T.I.D. DIETARY CONSULT PROTIEN 5.59, ALBUMIN 3.11 CBC AND CMP IN A WEEK AND THEN EVERY 3 MONTHS LIPIDS, TSH AND A1C EVERY 6 MONTHS, ALL TO BE TAKEN TO [facility] LAB CODE STATUS: DO NOT RESUSCITATE DR BLANCO/ TELLO RICHMOND APRN TO SEE AT FACILITY ON ROUNDS IN 5 - 10 DAYS MR. GOTTI DOES KNOW SELF BUT PLEASANTLY CONFUSED AND RAMBLES. HAS BEEN TREATED FOR ACUTE BRONCHITIS AFTER BEING SENT TO ED FROM [facility] ON 09/07/2019. HAS BEEN TREATED WITH SOLU-MEDROL, IV ROCEPHIN AND IV AZACTEM. HAS HAD SOME COUGH AND SOME SOA WHICH ALL HAS IMPROVED. IS EATING WELL NOW AND D RINKING ADEQUATE AMOUNT OF FLUIDS. HAS +2 PITTING EDEMA TO LEGS AND LT UPPER EXT HAS PUFFINESS. B/P HAS BEEN ELEVATED, INTERMITTENTLY, AT 171/86 THIS AM. EATING 75 - 100% OF MEALS NOW AND REQUIRES TO BE HAND FED WHEN HIS RT SHOULDER IS STIFF. TOTAL PROTEIN 5.59 AND ALBUMIN 3.11. AND WILL BE DISCHARGED WITH BOOST SUPPLEMENT . HE IS CONSUMING ADEQUATE AMOUNT OF PO FLUIDS. LBM AND NO COMPLAINTS OF ABD DISCOMFORT. KNEES ARE STIFF WITH LITTLE TO NO ROM AND HAS DECREASED ROM TO RT SHOULDER. HE DOES LIFT UP HIS RT ARM PARTIALLY OFF OF BED WITH NO ACUTE PAIN. INCONTINENT OF BOWEL AND BLADDER. MD TELLO MARI APRN
--- NOTE | 2019-09-13 14:18 | PN ---
DATE OF SERVICE: 09/07/2019 SUBJECTIVE: 88 year old white male hospitalized through the emergency room with acute bronchitis, acute respiratory failure. The patient had an oxygen saturation of 85% in the fdc. In the emergency room the patient's blood gasses and saturation were practically normal but he seemed to be dehydrated. REVIEW OF SYSTEMS: CONSTITUTIONAL: No night sweats. No fatigue, malaise, lethargy. No fever or chills. HEENT: Eyes: No visual changes. No eye pain. No eye discharge. ENT: No runny nose. No epistaxis. No sinus pain. No sore throat. No odynophagia. No congestion. RESPIRATORY: No cough, no congestion. No hemoptysis. No shortness of breath. CARDIOVASCULAR: No angina symptoms. No CHF symptoms. No atypical chest pain for CAD. No palpitations. No PND. No orthopnea. GASTROINTESTINAL: No abdominal pain. No nausea or vomiting. No diarrhea or constipation. No hematemesis. No hematochezia. GENITOURINARY: No urgency. No frequency. No dysuria. No hematuria. No obstructive symptoms. No discharge. No pain. No significant abnormal bleeding. MUSCULOSKELETAL: No musculoskeletal pain; no joint swelling. NEUROLOGICAL: No headache. No neck pain. No syncope. No seizures. No dizziness. PSYCHIATRIC: Not anxious. No depression. No suicidal thoughts. No homicidal thoughts. SKIN: No rash. No lesions. No wounds. ENDOCRINE: No unexplained weight loss. No weight gain. HEMATOLOGIC/LYMPHATIC: No anemia. No purpura. No petechiae. No prolonged or excessive bleeding. No palpable lymph nodes. PHYSICAL EXAMINATION: VITAL SIGNS: Temperature were 98.6, pulse 79, respiratory rate 24, blood pressure 136/67 and pulse ox 93% on room air. HEENT: Head normocephalic, atraumatic. Eyes: Extraocular muscles are intact. Pupils are equal, round and reactive to light and accommodation. Ears: No lesions. Nose appeared normal. Throat: No exudate or erythema. NECK: Supple. No JVD, no carotid bruit. No lymphadenopathy or thyromegaly. LUNGS: Decreased breath sounds with mild wheeze. Percussion note normal. Chest symmetrical. HEART: S1, S2, no S3. No murmurs. No cyanosis or clubbing. No ascites. Pulses: Dorsalis pedis and posterior tibial pulses +1 to +2 bilaterally. ABDOMEN: Soft. Nontender. Bowel sounds active. No CVA tenderness. No mass felt. EXTREMITIES: No edema. Full range of motion of all extremities, equal. NEUROLOGIC: No focal deficit. Cranial nerves II through XII are grossly intact. No headache, no double vision or headache. SKIN: Not dry. Intact. Turgor - normal. LYMPHATIC: No palpable lymph nodes/no lymphedema. MUSCULOSKELETAL: Normal joints with no swelling. Muscle tone is normal. LABS: Potassium was 5 with creatinine of 1.5 with BUN of 43. WBC was 15,000 with mild shift to the left. Hgb 11.4. ASSESSMENT: 1. Acute bronchitis with COPD 2. Dementia PLAN: 1. Give IV fluids 2. IV antibiotics 3. NEBS 4. IV steroids TIME SPENT: More than 30 minutes. Plan and coordination of the patient's care discussed in the presence of nurse. AIDEE
--- NOTE | 2019-09-13 14:30 | PN ---
DATE OF SERVICE: 09/08/2019 SUBJECTIVE: 88 year old white male hospitalized with acute bronchitis and respiratory failure. The patient's oxygen seems to have improved on room air. It is 96%. The patient's son and [id number] present in the room. Both are happy with the patient's progress. The patient is eating by himself. Good appetite. REVIEW OF SYSTEMS: CONSTITUTIONAL: No night sweats. No fatigue, malaise, lethargy. No fever or chills. HEENT: Eyes: No visual changes. No eye pain. No eye discharge. ENT: No runny nose. No epistaxis. No sinus pain. No sore throat. No odynophagia. No congestion. RESPIRATORY: Mild cough with congestion. No hemoptysis. No shortness of breath. CARDIOVASCULAR: No angina symptoms. No CHF symptoms. No atypical chest pain for CAD. No palpitations. No PND. No orthopnea. GASTROINTESTINAL: No abdominal pain. No nausea or vomiting. No diarrhea or constipation. No hematemesis. No hematochezia. GENITOURINARY: No urgency. No frequency. No dysuria. No hematuria. No obstructive symptoms. No discharge. No pain. No significant abnormal bleeding. MUSCULOSKELETAL: No musculoskeletal pain; no joint swelling. NEUROLOGICAL: No headache. No neck pain. No syncope. No seizures. No dizziness. PSYCHIATRIC: Not anxious. No depression. No suicidal thoughts. No homicidal thoughts. SKIN: No rash. No lesions. No wounds. ENDOCRINE: No unexplained weight loss. No weight gain. HEMATOLOGIC/LYMPHATIC: No anemia. No purpura. No petechiae. No prolonged or excessive bleeding. No palpable lymph nodes. PHYSICAL EXAMINATION: VITAL SIGNS: Temperature 98, pulse 98, respiratory rate 18, blood pressure 145/72 and pulse ox 96%. HEENT: Head normocephalic, atraumatic. Eyes: Extraocular muscles are intact. Pupils are equal, round and reactive to light and accommodation. Ears: No lesions. Nose appeared normal. Throat: No exudate or erythema. NECK: Supple. No JVD, no carotid bruit. No lymphadenopathy or thyromegaly. LUNGS: Decreased breath sounds with mild wheeze. Percussion note normal. Chest symmetrical. HEART: S1, S2, no S3. No murmurs. No cyanosis or clubbing. No ascites. Pulses: Dorsalis pedis and posterior tibial pulses +1 to +2 bilaterally. ABDOMEN: Soft. Nontender. Bowel sounds active. No CVA tenderness. No mass felt. EXTREMITIES: No edema. Full range of motion of all extremities, equal. NEUROLOGIC: No focal deficit. Cranial nerves II through XII are grossly intact. No headache, no double vision or headache. SKIN: Not dry. Intact. Turgor - normal. LYMPHATIC: No palpable lymph nodes/no lymphedema. MUSCULOSKELETAL: Normal joints with no swelling. Muscle tone is normal. LABS: Hgb 10.4, hct 32, WBC 19,000 normal differentials, creatinine 1.4, BUN 51, potassium 4.8 ASSESSMENT: 1. Acute bronchitis with COPD with respiratory failure seems to be under control with IV antibiotics, steroids and NEBS treatment. PLAN: 1. The patient is going to be given 1cc Decadron IM today and 1cc Decadron in the morning 2. Rocephin 1 gram to be given along with Azactam 3. Hydration status seems to have improved some. Creatinine and BUN is steady 4. Oxygen saturation is more than 90% on room air. The patient's condition seems to have improved. CONDITION: Stable. TIME SPENT: More than 30 minutes. Plan and coordination of the patient's care discussed in the presence of nurse. AIDEE
--- NOTE | 2019-09-13 14:50 | PN ---
DATE OF SERVICE: 09/09/2019 SUBJECTIVE: The patient is a lot better. He is awake and oriented to place but at times confused. Eating much better. No respiratory distress. Oxygen saturation more than 90% on room. The patient was seen and examined with Nurse Practitioner. PHYSICAL EXAMINATION: HEENT: Head normocephalic, atraumatic. Eyes: Extraocular muscles are intact. Pupils are equal, round and reactive to light and accommodation. Ears: No lesions. Nose appeared normal. Throat: No exudate or erythema. NECK: Supple. No JVD, no carotid bruit. No lymphadenopathy or thyromegaly. LUNGS: Decreased breath sounds. Clear to auscultation. Percussion note normal. Chest symmetrical. HEART: S1, S2, no S3. No murmurs. No cyanosis or clubbing. No ascites. Pulses: Dorsalis pedis and posterior tibial pulses +1 to +2 bilaterally. ABDOMEN: Soft. Nontender. Bowel sounds active. No CVA tenderness. No mass felt. EXTREMITIES: No edema. Full range of motion of all extremities, equal. NEUROLOGIC: No focal deficit. Cranial nerves II through XII are grossly intact. No headache, no double vision or headache. SKIN: Not dry. Intact. Turgor - normal. LYMPHATIC: No palpable lymph nodes/no lymphedema. MUSCULOSKELETAL: Normal joints with no swelling. Muscle tone is normal. PLAN: 1. Continue NEBS, Antibiotics and steroids. Respiratory status has improved. TIME SPENT: More than 30 minutes. Plan and coordination of the patient's care discussed in the presence of nurse. AIDEE
--- NOTE | 2019-09-14 11:01 | PN ---
DATE OF SERVICE: 09/12/2019 SUBJECTIVE: 88 year old white male hospitalized with acute bronchitis and COPD. The patient's condition has improved. The son is present in the room. He is very happy with the progress. He knows that the patient's prognosis is poor. The patient is feeding himself. The patient hasn't walked for awhile. He is in the wheelchair. The patient has some aspiration and coughing while he is eating. It happens periodically lately more frequently. REVIEW OF SYSTEMS: CONSTITUTIONAL: No night sweats. No fatigue, malaise, lethargy. No fever or chills. HEENT: Eyes: No visual changes. No eye pain. No eye discharge. ENT: No runny nose. No epistaxis. No sinus pain. No sore throat. No odynophagia. No congestion. RESPIRATORY: No cough, no congestion. No hemoptysis. No shortness of breath. CARDIOVASCULAR: No angina symptoms. No CHF symptoms. No atypical chest pain for CAD. No palpitations. No PND. No orthopnea. GASTROINTESTINAL: No abdominal pain. No nausea or vomiting. No diarrhea or constipation. No hematemesis. No hematochezia. GENITOURINARY: No urgency. No frequency. No dysuria. No hematuria. No obstructive symptoms. No discharge. No pain. No significant abnormal bleeding. MUSCULOSKELETAL: No musculoskeletal pain; no joint swelling. NEUROLOGICAL: No headache. No neck pain. No syncope. No seizures. No dizziness. PSYCHIATRIC: Not anxious. No depression. No suicidal thoughts. No homicidal thoughts. SKIN: No rash. No lesions. No wounds. ENDOCRINE: No unexplained weight loss. No weight gain. HEMATOLOGIC/LYMPHATIC: No anemia. No purpura. No petechiae. No prolonged or excessive bleeding. No palpable lymph nodes. PHYSICAL EXAMINATION: VITAL SIGNS: Temperature 97.9, pulse 72, respiratory rate 16, blood pressure 127/73 and pulse ox 94%. HEENT: Head normocephalic, atraumatic. Eyes: Extraocular muscles are intact. Pupils are equal, round and reactive to light and accommodation. Ears: No lesions. Nose appeared normal. Throat: No exudate or erythema. NECK: Supple. No JVD, no carotid bruit. No lymphadenopathy or thyromegaly. LUNGS: Decreased breath sounds. Mild expiratory wheeze. Percussion note normal. Chest symmetrical. HEART: S1, S2, no S3. No murmurs. No cyanosis or clubbing. No ascites. Pulses: Dorsalis pedis and posterior tibial pulses +1 to +2 bilaterally. ABDOMEN: Soft. Nontender. Bowel sounds active. No CVA tenderness. No mass felt. EXTREMITIES: No edema. Full range of motion of all extremities, equal. NEUROLOGIC: No focal deficit. Cranial nerves II through XII are grossly intact. No headache, no double vision or headache. SKIN: Not dry. Intact. Turgor - normal. LYMPHATIC: No palpable lymph nodes/no lymphedema. MUSCULOSKELETAL: Normal joints with no swelling. Muscle tone is normal. LABS: Hgb 9.4, hct 29, WBC 14,000 normal differential, creatinine 1.2, BUN 40, potassium 4.5. ASSESSMENT: 1. Acute bronchitis with COPD has resolved 2. Respiratory failure has resolved, Patient oxygen saturation on room air is 94%. 3. Anemia persists 4. Dementia persists but the patient is alert. PLAN: 1. The patient will under go Physical therapy for shoulders. He has restriction in obduction of the shoulder CONDITION: Stable. TIME SPENT: More than 30 minutes. Plan and coordination of the patient's care discussed in the presence of nurse. AIDEE
--- NOTE | 2019-09-15 11:43 | PN ---
DATE OF SERVICE: 09/11/2019 SUBJECTIVE: 88 year old white male hospitalized with acute bronchitis and COPD exacerbation with respiratory failure. The patient's condition has steadily improved and he is breathing a lot better. He is confused but alert sitting in the chair waiting for food. REVIEW OF SYSTEMS: CONSTITUTIONAL: No night sweats. No fatigue, malaise, lethargy. No fever or chills. HEENT: Eyes: No visual changes. No eye pain. No eye discharge. ENT: No runny nose. No epistaxis. No sinus pain. No sore throat. No odynophagia. No congestion. RESPIRATORY: No cough, no congestion. No hemoptysis. No shortness of breath. CARDIOVASCULAR: No angina symptoms. No CHF symptoms. No atypical chest pain for CAD. No palpitations. No PND. No orthopnea. GASTROINTESTINAL: No abdominal pain. No nausea or vomiting. No diarrhea or constipation. No hematemesis. No hematochezia. GENITOURINARY: No urgency. No frequency. No dysuria. No hematuria. No obstructive symptoms. No discharge. No pain. No significant abnormal bleeding. MUSCULOSKELETAL: No musculoskeletal pain; no joint swelling. NEUROLOGICAL: No headache. No neck pain. No syncope. No seizures. No dizziness. PSYCHIATRIC: Not anxious. No depression. No suicidal thoughts. No homicidal thoughts. SKIN: No rash. No lesions. No wounds. ENDOCRINE: No unexplained weight loss. No weight gain. HEMATOLOGIC/LYMPHATIC: No anemia. No purpura. No petechiae. No prolonged or excessive bleeding. No palpable lymph nodes. PHYSICAL EXAMINATION: VITAL SIGNS: Temperature 97.5, pulse 86, respiratory rate 18, blood pressure 164/76 and pulse ox 98% on room air. HEENT: Head normocephalic, atraumatic. Eyes: Extraocular muscles are intact. Pupils are equal, round and reactive to light and accommodation. Ears: No lesions. Nose appeared normal. Throat: No exudate or erythema. NECK: Supple. No JVD, no carotid bruit. No lymphadenopathy or thyromegaly. LUNGS: Clear with decreased breath sounds. Percussion note normal. Chest symmetrical. HEART: Increased AP diameter of the chest. S1, S2, no S3. No murmurs. No cyanosis or clubbing. No ascites. Pulses: Dorsalis pedis and posterior tibial pulses +1 to +2 bilaterally. ABDOMEN: Soft. Nontender. Bowel sounds active. No CVA tenderness. No mass felt. EXTREMITIES: Some swelling of both upper extremities. Trace edema. Full range of motion of all extremities, equal. NEUROLOGIC: No focal deficit. Cranial nerves II through XII are grossly intact. No headache, no double vision or headache. SKIN: Not dry. Intact. Turgor - normal. LYMPHATIC: No palpable lymph nodes/no lymphedema. MUSCULOSKELETAL: Normal joints with no swelling. Muscle tone is normal. LABS: Hgb 9.9, hct 31, WBC 19,000 normal differential,creatinine 1.1, BUN 40, potassium 4.5 ASSESSMENT: 1. Acute bronchitis with COPD resolved 2. Dementia, persists PLAN: 1. Discontinue IV fluids 2. Give 20mg of Lasix IV 3. Monitor CBC and CMP 4. WBC count is high because of steroids. CONDITION: Stable. TIME SPENT: More than 30 minutes. Plan and coordination of the patient's care discussed in the presence of nurse. AIDEE
--- NOTE | 2019-09-20 14:53 | PN ---
DATE OF SERVICE: 09/10/19 SUBJECTIVE: The patient was seen and examined with the nurse practitioner. The patient's condition seems to have improved. The patient has chronic lung disease, being treated with antibiotics, steroids, nebs. Dementia persists but the patient is alert, eating very well. TIME SPENT: More than 30 minutes. Plan and coordination of the patient's care discussed in the presence of nurse. AIDEE
== END 2019-09-13 13:10 | DRG 202 ==
LOC: ED 13:14 → MEDSURG A 15:36 → SCU 16:08
PROVIDERS: ADMIT Internal Medicine; ATTEND Internal Medicine
DX: R06.02 Shortness of breath; Z87.440 Personal history of urinary (tract) infections; G30.9 Alzheimer's disease, unspecified; N18.3 Chronic kidney disease, stage 3 (moderate); J20.9 Acute bronchitis, unspecified; E86.0 Dehydration; F02.80 Dementia in other diseases classified elsewhere, unspecified severity, without behavioral disturbance, psychotic disturbance, mood disturbance, and anxiety; N39.0 Urinary tract infection, site not specified; E78.5 Hyperlipidemia, unspecified; J96.00 Acute respiratory failure, unspecified whether with hypoxia or hypercapnia; M17.0 Bilateral primary osteoarthritis of knee; J44.0 Chronic obstructive pulmonary disease with (acute) lower respiratory infection; D63.1 Anemia in chronic kidney disease; Z79.899 Other long term (current) drug therapy; B96.4 Proteus (mirabilis) (morganii) as the cause of diseases classified elsewhere; I10 Essential (primary) hypertension

== ENCOUNTER 2019-10-04 15:28 | Inpatient (IN) ==
[2019-10-04] MEDS ORDERED: ZOFRAN 4 MG/2 ML IVP STA ×2 (16:04→18:41)
[2019-10-04] MEDS ORDERED: SODIUM CHLORIDE 1,000 ML IV STA (16:04)
--- NOTE | 2019-10-04 16:10 | ED.PDOC ---
General ED Provider: Dr. JOSHUA ESPAÑA MD Chief Complaint: Nausea/Vomiting Stated Complaint: NH pt hx dementia w/ NV today, hx uti, nonambulatory, poor historian, hx fever, no injury, hx swelling left UE but no dvt Time Seen by Physician: 16:08 Mode of Arrival: Wheelchair Information Source: Family and Half-Way Primary Care Provider: TATY BLANCO Nursing and Triage Documentation Reviewed and Agree: Yes Does patient meet sepsis criteria?: No System Inflammatory Response Syndrome: Not Applicable Sepsis Protocol: For patient's 13 years and over: Temp is 96.8 and below OR 101 and greater Pulse >90 BPM Resp >20/minute Acutely Altered Mental Status Are patient's symptoms suggestive of a new infection, such as: -Pneumonia -Skin, Soft Tissue -Endocarditis -UTI -Bone, Joint Infection -Implantable Device -Acute Abdominal Infection -Wound Infection -Meningitis -Blood Stream Catheter Infection -Unknown GI Complaint Exam Vomiting/Diarrhea Complaint/Exam Onset/Duration: today Symptoms Are: Still present Initial Severity: Moderate Current Severity: Mild Review of Systems Review Of Systems Constitutional: Reports Fever and Other (pt unable to provider further ros due to dementia) Eyes: Denies Drainage Ears, Nose, Mouth, Throat: Denies Ear discharge Respiratory: Denies Cough Cardiac: Reports Edema GI: Reports Vomiting Skin: Denies Rash All Other Systems: Other [facility] Medical History Alzheimers disease (Acute) Bradycardia (Acute) Dementia (Acute) Dizzy spells (Acute) Dyslipidemia (Acute) Hernia (Acute) HTN (hypertension) (Acute) Skin cancer (melanoma) (Acute) Family History FATHER Gangrene Social History Smoking and tobacco status: Former smoker Alcohol intake: former Counseling given: No Physical Exam Physical Exam Appearance: Reports No pain distress Ill-appearing: None Pain Distress: None Eyes: Reports Conjunctiva clear ENT: Reports Oropharynx normal Neck: Supple Respiratory: Reports Airway patent and Breath sounds equal Cardiovascular: Reports RRR GI/: Reports Soft and Tender (no rebound) Musculoskeletal: Reports Edema Skin: Reports Warm and Dry Neurological: Reports Cranial nerves intact Psychiatric: Reports Depressed Interpretation Radiology Interpretation Radiology Interpretation By: Radiologist Radiology Results: No acute changes Exam Interpreted: CXR Radiology Interpretation By: Radiologist Exam Interpreted: CT Scan Xray Comments: +stool, no obstruction EKG Interpretation Time of EKG #1: 18:37 Rate: Normal Rhythm: Sinus Interpretation: no stemi, +rbbb Re-Evaluation Re-Evaluation Time of Re-Evaluation: 18:37 Vital Signs Stable: Yes Appearance: NAD Additional Comments: admit d/w Dr Blanco for vomiting and dehydration Critical Care Note Critical Care Note Total Time (mins): 0 Course Course Hematology/Chemistry: 10/06/19 05:12 10/06/19 05:12 Orders, Labs, Meds: Lab Review 10/04/19 10/04/19 10/04/19 16:20 16:20 16:20 WBC 13.25 H RBC 3.25 L Hgb 9.8 L Hct 30.6 L MCV 94.2 H MCH 30.2 MCHC 32.0 RDW Coeff of Ladan 14.7 Plt Count 274 Immature Gran % (Auto) 1.4 Neut % (Auto) 75.7 H Lymph % (Auto) 9.1 L [place] % (Auto) 10.9 H Eos % (Auto) 2.6 Baso % (Auto) 0.3 Immature Gran # (Auto) 0.2 Neut # (Auto) 10.0 H Lymph # (Auto) 1.2 [place] # (Auto) 1.5 Eos # (Auto) 0.3 Baso # (Auto) 0.0 Sodium 137.5 Potassium 4.32 Chloride 103.2 Carbon Dioxide 25.6 Anion Gap 13.02 BUN 50.9 H Creatinine 1.51 H Estimated GFR (MDRD) 44.00 BUN/Creatinine Ratio 33.70 Glucose 94.3 Lactic Acid 1.27 Calcium 8.61 Total Bilirubin 0.27 AST 41.9 ALT 29.7 Alkaline Phosphatase 54.2 L Troponin I 0.028 Total Protein 6.15 L Albumin 3.38 L Globulin 2.77 Albumin/Globulin Ratio 1.22 Urine Color Urine Clarity Urine pH Ur Specific [place] Urine Protein Urine Glucose (UA) Urine Ketones Urine Blood Urine Nitrite Urine Bilirubin Urine Urobilinogen Ur Leukocyte Esterase Urine Microscopic RBC Urine Microscopic WBC Ur Squamous Epith Cells Urine Bacteria Influ A Molecular Assay Influ B Molecular Assay 10/04/19 10/04/19 16:42 18:10 WBC RBC Hgb Hct MCV MCH MCHC RDW Coeff of Ladan Plt Count Immature Gran % (Auto) Neut % (Auto) Lymph % (Auto) [place] % (Auto) Eos % (Auto) Baso % (Auto) Immature Gran # (Auto) Neut # (Auto) Lymph # (Auto) [place] # (Auto) Eos # (Auto) Baso # (Auto) Sodium Potassium Chloride Carbon Dioxide Anion Gap BUN Creatinine Estimated GFR (MDRD) BUN/Creatinine Ratio Glucose Lactic Acid Calcium Total Bilirubin AST ALT Alkaline Phosphatase Troponin I Total Protein Albumin Globulin Albumin/Globulin Ratio Urine Color Yellow Urine Clarity Clear Urine pH 5.5 Ur Specific [place] 1.015 Urine Protein Negative Urine Glucose (UA) Negative Urine Ketones Negative Urine Blood Trace-lysed Urine Nitrite Negative Urine Bilirubin Negative Urine Urobilinogen 0.2 Ur Leukocyte Esterase Negative Urine Microscopic RBC 0-2 Urine Microscopic WBC 0-2 Ur Squamous Epith Cells 0-2 Urine Bacteria Trace Influ A Molecular Assay Negative by naat Influ B Molecular Assay Negative by naat Orders Category Date Time Status EKG-(ED ONLY) Stat CARDIO 10/04/19 16:04 Completed TELEMETRY MONITORING TELE CARE 10/04/19 19:12 Completed CBC W/ AUTO DIFF Stat LAB 10/04/19 16:20 Completed COMPREHENSIVE METABOLIC PANEL Stat LAB 10/04/19 16:20 Completed FLU A/B MOLECULAR Stat LAB 10/04/19 16:42 Completed LACTIC ACID Stat LAB 10/04/19 16:20 Completed TROPONIN I Stat LAB 10/04/19 16:20 Completed URINALYSIS C & S IF INDICATED Stat LAB 10/04/19 18:10 Completed Acetaminophen [Tylenol] MEDS 10/04/19 18:39 Active 650 mg PO Q4H PRN Amlodipine Besylate [Norvasc] MEDS 10/04/19 21:00 Active 10 mg PO BEDTIME Ipratropium/Albuterol Neb [Duoneb] MEDS 10/04/19 21:00 Discontinued 3 ml NEB QID Lisinopril/Hydrochlorothiazide [Zestoretic 20-12.5 mg MEDS 10/05/19 09:00 Hold Tab] 2 tab PO DAILY Ondansetron HCl/Pf [Zofran 4 mg/2 ml] MEDS 10/04/19 16:04 Discontinued 4 mg IVP ONCE STA Ondansetron HCl/Pf [Zofran 4 mg/2 ml] MEDS 10/04/19 18:41 Discontinued 4 mg IVP ONCE STA Sodium Chloride 0.9% [Sodium Chloride] 1,000 ml MEDS 10/04/19 18:41 Discontinued IV 100 mls/hr Sodium Chloride 0.9% [Sodium Chloride] 1,000 ml MEDS 10/04/19 16:04 Discontinued IV BOLUS Tramadol HCl [Ultram] MEDS 10/04/19 18:39 Active 50 mg PO Q6HR PRN CHEST, 1V AP ONLY Stat RADS 10/04/19 16:[address] ABDOMEN/PELVIS WO CONTRAST Stat RADS 10/04/19 16:04 Completed Medications Generic Name Dose Route Start Last Admin Trade Name Freq PRN Reason Stop Dose Admin Acetaminophen 650 mg 10/04/19 18:39 Tylenol PO Q4H PRN Fever >101 Albuterol/Ipratropium 3 ml 10/05/19 10:00 10/06/19 04:43 Duoneb NEB 3 ml RTQID EDUARD Administration Amlodipine Besylate 10 mg 10/04/19 21:00 10/05/19 20:17 Norvasc PO 10 mg BEDTIME EDUARD Administration Lisinopril/HCTZ 2 tab 10/05/19 09:00 Zestoretic 20-12.5 Mg Tab PO DAILY EDUARD Sodium Chloride 1,000 mls @ 50 mls/hr 10/05/19 23:00 10/06/19 02:14 Sodium Chloride IV Not Given .Q20H EDUARD Non-Formulary Medication 4 gm 10/05/19 09:00 10/05/19 20:22 Diclofenac Sodium [Voltaren] TP 4 gm BID EDUARD Administration Tramadol HCl 50 mg 10/04/19 18:39 10/05/19 16:39 Ultram PO 50 mg Q6HR PRN Administration Pain Discontinued Medications Generic Name Dose Route Start Last Admin Trade Name Freq PRN Reason Stop Dose Admin Albuterol/Ipratropium 3 ml 10/04/19 21:00 10/05/19 05:10 Duoneb NEB 3 ml QID EDUARD Administration Sodium Chloride 1,000 mls @ 1,000 mls/hr 10/04/19 16:04 10/04/19 17:42 Sodium Chloride IV 10/04/19 17:03 1,000 mls/hr BOLUS STA Administration Sodium Chloride 1,000 mls @ 100 mls/hr 10/04/19 18:41 10/05/19 03:32 Sodium Chloride IV 10/05/19 04:40 100 mls/hr .Q10H STA Administration Sodium Chloride 1,000 mls @ 50 mls/hr 10/05/19 08:00 10/05/19 08:00 Sodium Chloride IV 50 mls/hr .Q20H EDUARD Administration Ondansetron HCl 4 mg 10/04/19 16:04 10/04/19 17:43 Zofran 4 Mg/2 Ml IVP 10/04/19 16:05 4 mg ONCE STA Administration Ondansetron HCl 4 mg 10/04/19 18:41 10/04/19 19:02 Zofran 4 Mg/2 Ml IVP 10/04/19 18:42 Not Given ONCE STA Vital Signs: Temp Pulse Resp BP Pulse Ox 10/04/19 15:30 98.8 F 84 18 157/68 H 94 L Discharge Plan Discharge Patient Disposition: PLACED OBSERVATION Discharge Problem: Vomiting, Acute dehydration ED Provider: JOSHUA ESPAÑA Condition: Stable Discharge Date/Time: 10/04/19 20:00
[2019-10-04 16:24] LABS: HEMATOCRIT 30.6 % (42.0-52.0)
--- NOTE | 2019-10-04 16:45 | DI ---
EXAM: Chest one view HISTORY: Weak COMPARISON: 09/09/2019 TECHNIQUE: Single view of the chest was performed FINDINGS: The lungs are clear. There is no pleural effusion or pneumothorax. The heart is mildly e nlarged in size. The mediastinal contour is unchanged, noting atherosclerosis. There are no acute a bnormalities of the bones. Advanced arthropathy of the shoulders. IMPRESSION: No acute cardiopulmonary process.
--- NOTE | 2019-10-04 17:15 | CT ---
EXAM: CT of the abdomen and pelvis without contrast. HISTORY: Vomit PROCEDURE: Contiguous axial CT images of the abdomen and pelvis without contrast with coronal and sa gittal reformats. FINDINGS: There is minimal bibasilar consolidation. The heart is enlarged. The liver, gallbladder, pancreas, spleen, adrenal glands and right kidney are normal in appearance. There is a fluid density cyst in the left kidney. The abdominal aorta is within normal limits in diameter. There are athero sclerotic calcifications in the major arteries of the abdomen and pelvis. The appendix is normal in appearance. There is fecal stasis in the colon. No bowel obstruction. No free fluid or free air in the abdomen or pelvis. The bladder is adequately filled and normal in appearance. The seminal vesi cles and prostate gland are unremarkable. There are degenerative changes in the spine. There is 5 m m anterolisthesis of L4 on L5. Impression: Fecal stasis in the colon. Left renal simple cyst. Atherosclerotic vascular disease. Bibasilar atelectasis and/or pneumonia. Cardiomegaly.
[2019-10-04] MEDS ORDERED: TYLENOL PO PRN (18:39)
[2019-10-04 20:56] VITALS: BMI 25.9
[2019-10-04] MEDS: NORVASC PO SCH (22:06)
[2019-10-04] MEDS: ULTRAM PO PRN (22:06)
[2019-10-04] MEDS: SODIUM CHLORIDE 1,000 ML IV STA (22:17)
[2019-10-04] MEDS: DUONEB NEB SCH (23:42)
[2019-10-05] MEDS: SODIUM CHLORIDE 1,000 ML IV STA (03:32)
[2019-10-05] MEDS: DUONEB NEB SCH ×4 (05:10→19:44)
[2019-10-05 06:44] LABS: HEMATOCRIT 26.5 % (42.0-52.0)
[2019-10-05] MEDS ORDERED: SODIUM CHLORIDE 1,000 ML IV SCH ×2 (08:00→23:00)
[2019-10-05] MEDS: DICLOFENAC SODIUM 4 GM TP SCH ×2 (08:00→20:22)
[2019-10-05] MEDS ORDERED: ZESTORETIC 20-12.5 MG TAB PO SCH (09:00)
[2019-10-05] MEDS: ULTRAM PO PRN ×2 (10:38→16:39)
--- NOTE | 2019-10-05 12:59 | PN ---
DATE OF SERVICE: 10/04/2019 ADMIT NOTE SUBJECTIVE: The [facility]. The patient has been vomiting. There is some diarrhea more like an acute gastroenteritis type of symptoms. His oral intake has been poor. CT scan of the abdomen done in the emergency room showed no acute findings. Chest x-ray report had no acute findings. Lab test were all acceptable except elevate WBC and BUN of 50 with creatinine of 1.5. The patient is going to be hospitalized with dehydration and treatment for acute gastroenteritis. TIME SPENT: More than 30 minutes. Plan and coordination of the patient's care discussed in the presence of nurse. AIDEE
[2019-10-05] MEDS: NORVASC PO SCH (20:17)
[2019-10-06] MEDS: DUONEB NEB SCH ×4 (04:43→19:45)
[2019-10-06] MEDS: DICLOFENAC SODIUM 4 GM TP SCH ×2 (08:14→20:27)
--- NOTE | 2019-10-06 08:34 | HP ---
DATE OF SERVICE: 10/04/19 HISTORY OF PRESENT ILLNESS: 88-year-old male who was brought into the ER from [facility] with complaints of nausea, vomiting and diarrhea. He has been unable to eat or drink. These symptoms occurred for the last two days. PAST MEDICAL HISTORY: Bradycardia Hypertension Recent UTI Dyslipidemia Alzheimer's dementia BPH Chronic kidney disease, Stage 3 Knee osteoarthritis Leg weakness PAST SURGICAL HISTORY: Hernia Bilateral knee arthroplasty Cataracts Cancer removal on ear and nose REVIEW OF SYSTEMS: CONSTITUTIONAL: No night sweats. No fatigue, malaise, lethargy. No fever or chills. HEENT: Eyes: No visual changes. No eye pain. No eye discharge. ENT: No runny nose. No epistaxis. No sinus pain. No sore throat. No odynophagia. No ear pain. No congestion. RESPIRATORY: No cough, no congestion. No hemoptysis. No shortness of breath. CARDIOVASCULAR: No angina symptoms. No CHF symptoms. No atypical chest pain for CAD. No palpitations. No PND. No orthopnea. GASTROINTESTINAL: Nausea and vomiting. Diarrhea. No abdominal pain. No hematemesis. No hematochezia. GENITOURINARY: No urgency. No frequency. No dysuria. No hematuria. No obstructive symptoms. No discharge. No pain. No significant abnormal bleeding. MUSCULOSKELETAL: No musculoskeletal pain. No joint swelling. No arthritis. NEUROLOGICAL: No headache. No neck pain. No syncope. No seizures. No dizziness. PSYCHIATRIC: Not anxious. No depression. No suicidal thoughts. No homicidal thoughts. SKIN: No rash. No lesions. No wounds. ENDOCRINE: No unexplained weight loss. No weight gain. HEMATOLOGIC/LYMPHATIC: No anemia. No purpura. No petechiae. No prolonged or excessive bleeding. No palpable lymph nodes. PERSONAL/FAMILY/SOCIAL HISTORY: He is . He resides at [facility]. He is a former smoker. There is no illegal drug or alcohol use. MEDICATIONS: (HOME) Metoprolol Succinate 50 mg p.o. daily Aspirin 81 mg p.o. daily Acetaminophen 650 mg p.o. q.4h p.r.n. Amlodipine 10 mg p.o. bedtime Ipratropium-Albuterol 3 mL inhalation t.i.d. Lisinopril-Hydrochlorothiazide (Zestoretic) two tab p.o. daily Diclofenac Sodium (Voltaren) 4 gm Topical b.i.d. Ipratropium-Albuterol 0.5 mg-3 mg - 3 mL inhalation q.i.d. Tramadol 50 mg p.o. q.6hr p.r.n. ALLERGIES: NKDA PHYSICAL EXAMINATION: VITAL SIGNS: Temperature 98.8, pulse 84, respirations 18, blood pressure 157/68, pulse ox 94. HEENT: Head normocephalic, atraumatic. Eyes: Extraocular muscles are intact. Pupils are equal, round and reactive to light and accommodation. Ears: No lesions. Nose appeared normal. Throat: No exudate or erythema. NECK: Supple. No JVD, no carotid bruit. No lymphadenopathy or thyromegaly. LUNGS: Diminished breath sounds. Clear to auscultation. Percussion note normal. Chest symmetrical. HEART: S1, S2, no S3. No murmur. No cyanosis or clubbing. No ascites. Pulses: Dorsalis pedis and posterior tibial pulses +1 to +2 bilaterally. ABDOMEN: Soft. Nontender. Bowel sounds active. No CVA tenderness. No mass felt. EXTREMITIES: Trace bilateral lower extremity edema. Full range of motion of all extremities, equal. NEUROLOGIC: Alert, pleasantly confused. Oriented to person. No focal deficit. Cranial nerves II through XII are grossly intact. No headache, no double vision or headache. SKIN: Warm and dry. Intact. Turgor - normal. LYMPHATIC: No palpable lymph nodes/no lymphedema. MUSCULOSKELETAL: Normal joints with no swelling. Muscle tone is normal. LABS: White count 13.25, hemoglobin 9.8, hematocrit 30.6, platelet 274. Sodium 137.5, potassium 4.32, BUN 50.9, Creatinine 1.51, AST 41.9, ALT 29.7, negative for Influenza A and B. CT of the abdomen and pelvis without contrast, fecal stasis in the colon, left renal simple cyst, atherosclerotic vascular disease, bibasilar atelectasis and/or pneumonia, cardiomegaly. Chest x-ray showed no acute cardiopulmonary process. ASSESSMENT: 1. RENAL AZOTEMIA 2. ACUTE GASTRITIS 3. DEHYDRATION 4. CHRONIC KIDNEY DISEASE STAGE 3 5. HYPERTENSION 6. ALZHEIMER'S DEMENTIA PLAN: 1. Admit 2. Routine telemetry 3. CBC, CMP daily 4. Continue home medications 5. 02 at 1 to 2L/NC as needed 6. Normal Saline IV 7. Zofran as needed for vomiting 8. Duonebs q.i.d. EDUARD 9. Regular diet 10. The patient was seen and examined with Dr. Nelson. Plan discussed. TIME SPENT: More than 70 minutes. AIDEE
[2019-10-06] MEDS: DECADRON 4 MG/ML SDV IM SCH (11:15)
[2019-10-06] MEDS: ULTRAM PO PRN (17:11)
[2019-10-06] MEDS: NORVASC PO SCH (20:27)
[2019-10-07 04:49] LABS: HEMATOCRIT 26.6 % (42.0-52.0)
[2019-10-07] MEDS: DUONEB NEB SCH ×3 (04:57→14:10)
--- NOTE | 2019-10-07 08:32 | PCM.PROG ---
Attending Provider: ATTENDING PROVIDER: Dr. TATY BLANCO This patient is seen with Ephraim Baker, Nurse Practitioner. DATE OF SERVICE: 10/07/19 SUBJECTIVE: This 89 year old /WHITE M was hospitalized 10/04/19. The patient is resting in the bed. The patient is pleasantly confused as usual. Dehydration has improved. We will continue to push oral fluids. We are planning [facility] REVIEW OF SYSTEMS: CONSTITUTIONAL: No night sweats. No fatigue, malaise, lethargy. No fever or chills. Weakness. HEENT: Eyes: No visual changes. No eye pain. No eye discharge. ENT: No runny nose. No epistaxis. No sinus pain. No odynophagia. No congestion. RESPIRATORY: No cough, no congestion. No hemoptysis. No shortness of breath. CARDIOVASCULAR: No angina symptoms. No CHF symptoms. No atypical chest pain for CAD. No palpitations. No orthopnea.. GASTROINTESTINAL: No abdominal pain. No nausea or vomiting. No diarrhea or constipation. No hematemesis. No hematochezia. GENITOURINARY: No urgency. No frequency. No dysuria. No hematuria. No o bstructive symptoms. No discharge. No pain. No significant abnormal bleeding. MUSCULOSKELETAL: No musculoskeletal pain; no joint swelling. Joint pain. NEUROLOGICAL: Awake, alert, confusion No headache. No neck pain. No syncope. No seizures. No dizziness. PSYCHIATRIC: Not anxious. No depression. No suicidal thoughts. No homicidal thoughts. SKIN: No rash. No lesions. No wounds. ENDOCRINE: No unexplained weight loss. No weight gain. HEMATOLOGIC/LYMPHATIC: No anemia. No purpura. No petechiae. No prolonged or excessive bleeding. No palpable lymph nodes. PHYSICAL EXAMINATION: GENERAL: The patient is awake, alert and oriented, lying in bed in no distress. VITAL SIGNS: Temperature 98.0 F, Pulse 98, Respiratory Rate 16, BP 151/79, Pulse Ox 99% HEENT: Head normocephalic, atraumatic. Eyes: Extraocular muscles are intact. Pupils are equal, round and reactive to light and accommodation. Ears: No lesions. Nose appeared normal. Throat: No exudate or erythema. NECK: Supple. No JVD, no carotid bruit. No lymphadenopathy or thyromegaly. LUNGS: Diminished breath sounds. Clear to auscultation. Percussion note normal. Chest symmetrical. HEART: S1, S2, no S3. No murmurs. No cyanosis or clubbing. No ascites. Pulses: Dorsalis pedis and posterior tibial pulses +1 to +2 both sides. ABDOMEN: Soft. Non-tender. Bowel sounds active. No CVA tenderness. No mass felt. EXTREMITIES: No edema. Full range of motion of all extremities, equal. NEUROLOGIC: No focal deficit. Cranial nerves II through XII are grossly intact. No headache, no double vision or headache. SKIN: Not dry. Intact. Turgor-normal. LYMPHATIC: No palpable lymph nodes/no lymphedema. MUSCULOSKELETAL: Normal joints with no swelling. Muscle tone is normal. LAB REVIEW: 10/07/19 04:20 10/07/19 04:20 10/07/19 04:20: Sodium 135.9, Potassium 4.17, Chloride 105.7, Carbon Dioxide 22.0, Anion Gap 12.37, BUN 33.6 H, Creatinine 1.16 H, Estimated GFR (MDRD) 59.00, BUN/Creatinine Ratio 28.96, Glucose 131.6 H, Calcium 8.44, Total Bilirubin 0.25, AST 30.9, ALT 27.3, Alkaline Phosphatase 56.8, Total Protein 6.05 L, Albumin 3.29 L, Globulin 2.76, Albumin/Globulin Ratio 1.19 10/07/19 04:20: WBC 13.20 H, RBC 2.93 L, Hgb 9.0 L, Hct 26.6 L, MCV 90.8, MCH 30.7, MCHC 33.8, RDW Coeff of Ladan 13.7, Plt Count 319, Immature Gran % (Auto) 1.5, Neut % (Auto) 87.7 H, Lymph % (Auto) 4.9 L, Person % (Auto) 5.8, Eos % (Auto) 0.0, Baso % (Auto) 0.1, Immature Gran # (Auto) 0.2, Neut # (Auto) 11.6 H, Lymph # (Auto) 0.7, Person # (Auto) 0.8, Eos # (Auto) 0.0, Baso # (Auto) 0.0 ASSESSMENT: Please see below. 1. Renal Azotemia 2. Dehydration 3. Gastritis 4. Chronic kidney disease stage 3 5. Hypertension 6. Alzheimer's Dementia PLAN: 1. [facility] back [facility] 2. CBC and CMP in one week 3. Resume home medications 4. Prednisone 20mg for 5 days and then 10mg for 5 days 5. Encourage oral fluids. Plan and coordination of the patient's care discussed in the presence of Home Health Caregiver and nurse. SCRIBED BY: DUKE GALLEGO Administrative Sales Assistant scribed while in presence of service performed by Dr. Blanco/Ephraim Baker APRN on 10/07/19 ([id number])
[2019-10-07] MEDS: ULTRAM PO PRN ×2 (08:50→15:21)
[2019-10-07] MEDS: DICLOFENAC SODIUM 4 GM TP SCH (08:51)
[2019-10-07] MEDS: DECADRON 4 MG/ML SDV IM SCH (08:51)
--- NOTE | 2019-10-07 08:58 | PN ---
DATE OF SERVICE: 10/06/2019 SUBJECTIVE: 89 year old white male hospitalized with acute gastritis type of symptoms with severe dehydration with renal azotemia. The patient's condition seems to be improving. He is coughing a little bit more,productive cough. The patient's diarrhea has subsided. The Appetite seems to be improving. REVIEW OF SYSTEMS: CONSTITUTIONAL: No night sweats. No fatigue, malaise, lethargy. No fever or chills. HEENT: Eyes: No visual changes. No eye pain. No eye discharge. ENT: No runny nose. No epistaxis. No sinus pain. No sore throat. No odynophagia. No congestion. RESPIRATORY: Still coughing, no congestion. No hemoptysis. No shortness of breath. CARDIOVASCULAR: No angina symptoms. No CHF symptoms. No atypical chest pain for CAD. No palpitations. No PND. No orthopnea. GASTROINTESTINAL: No abdominal pain. No nausea or vomiting. No diarrhea or constipation. No hematemesis. No hematochezia. GENITOURINARY: No urgency. No frequency. No dysuria. No hematuria. No obstructive symptoms. No discharge. No pain. No significant abnormal bleeding. MUSCULOSKELETAL: No musculoskeletal pain; no joint swelling. NEUROLOGICAL: No headache. No neck pain. No syncope. No seizures. No dizziness. PSYCHIATRIC: Not anxious. No depression. No suicidal thoughts. No homicidal thoughts. SKIN: No rash. No lesions. No wounds. ENDOCRINE: No unexplained weight loss. No weight gain. HEMATOLOGIC/LYMPHATIC: No anemia. No purpura. No petechiae. No prolonged or excessive bleeding. No palpable lymph nodes. PHYSICAL EXAMINATION: VITAL SIGNS: Temperature 97.5, pulse 97, respiratory rate 18, blood pressure 124/62 and pulse ox 92%. HEENT: Head normocephalic, atraumatic. Eyes: Extraocular muscles are intact. Pupils are equal, round and reactive to light and accommodation. Ears: No lesions. Nose appeared normal. Throat: No exudate or erythema. NECK: Supple. No JVD, no carotid bruit. No lymphadenopathy or thyromegaly. LUNGS: Decreased breath sounds with mild wheeze. Clear to auscultation. Percussion note normal. Chest symmetrical. HEART: S1, S2, no S3. No murmurs. No cyanosis or clubbing. No ascites. Pulses: Dorsalis pedis and posterior tibial pulses +1 to +2 bilaterally. ABDOMEN: Soft. Nontender. Bowel sounds active. No CVA tenderness. No mass felt. EXTREMITIES: No edema. Full range of motion of all extremities, equal. NEUROLOGIC: No focal deficit. Cranial nerves II through XII are grossly intact. No headache, no double vision or headache. SKIN: Not dry. Intact. Turgor - normal. LYMPHATIC: No palpable lymph nodes/no lymphedema. MUSCULOSKELETAL: Normal joints with no swelling. Muscle tone is normal. LABS: Hgb 8.4, hct 26, WBC 11,000 normal differential, creatinine 1, BUN 33, Potassium 4.1. ASSESSMENT: 1. Renal azotemia seems to be improving with improvement in BUN and Creatinine 2. Dehydration seems to have resolved with good skin turgor 3. Chronic bronchitis 4. Dementia PLAN: 1. Give 1cc Decadron today and 1cc Decadron in the morning 2. Continue IV fluids TIME SPENT: More than 30 minutes. Plan and coordination of the patient's care discussed in the presence of nurse. AIDEE
--- NOTE | 2019-10-07 11:17 | PN ---
DATE OF SERVICE: 10/05/2019 SUBJECTIVE: 89 year old white male hospitalized with nausea, vomiting and renal azotemia. The patient's condition seems to have improved. The son is present in the room. The patient is eating a little bit better. Still has chronic cough. REVIEW OF SYSTEMS: CONSTITUTIONAL: No night sweats. No fatigue, malaise, lethargy. No fever or chills. HEENT: Eyes: No visual changes. No eye pain. No eye discharge. ENT: No runny nose. No epistaxis. No sinus pain. No sore throat. No odynophagia. No congestion. RESPIRATORY: No cough, no congestion. No hemoptysis. No shortness of breath. CARDIOVASCULAR: No angina symptoms. No CHF symptoms. No atypical chest pain for CAD. No palpitations. No PND. No orthopnea. GASTROINTESTINAL: No abdominal pain. No nausea or vomiting. No diarrhea or constipation. No hematemesis. No hematochezia. GENITOURINARY: No urgency. No frequency. No dysuria. No hematuria. No obstructive symptoms. No discharge. No pain. No significant abnormal bleeding. MUSCULOSKELETAL: No musculoskeletal pain; no joint swelling. NEUROLOGICAL: No headache. No neck pain. No syncope. No seizures. No dizziness. PSYCHIATRIC: Not anxious. No depression. No suicidal thoughts. No homicidal thoughts. SKIN: No rash. No lesions. No wounds. ENDOCRINE: No unexplained weight loss. No weight gain. HEMATOLOGIC/LYMPHATIC: No anemia. No purpura. No petechiae. No prolonged or excessive bleeding. No palpable lymph nodes. PHYSICAL EXAMINATION: VITAL SIGNS: Temperature 98, pulse 90, respiratory rate 15, blood pressure 130/70 and pulse ox 92% on room air. HEENT: Head normocephalic, atraumatic. Eyes: Extraocular muscles are intact. Pupils are equal, round and reactive to light and accommodation. Ears: No lesions. Nose appeared normal. Throat: No exudate or erythema. NECK: Supple. No JVD, no carotid bruit. No lymphadenopathy or thyromegaly. LUNGS: Clear to auscultation. Percussion note normal. Chest symmetrical. HEART: S1, S2, no S3. No murmurs. No cyanosis or clubbing. No ascites. Pulses: Dorsalis pedis and posterior tibial pulses +1 to +2 bilaterally. ABDOMEN: Soft. Nontender. Bowel sounds active. No CVA tenderness. No mass felt. EXTREMITIES: No edema. Full range of motion of all extremities, equal. NEUROLOGIC: No focal deficit. Cranial nerves II through XII are grossly intact. No headache, no double vision or headache. SKIN: Dry. Intact. Turgor - normal. Seems to have improved from yesterday. LYMPHATIC: No palpable lymph nodes/no lymphedema. MUSCULOSKELETAL: Normal joints with no swelling. Muscle tone is normal. ASSESSMENT: 1. Renal azotemia with dehydration 2. Acute gastroenteritis 3. Dementia 4. Chronic lung disease 5. Chronic anemia PLAN: 1. Continue IV fluids 2. Continue Zofran 3. Continue Symptomatic treatment. The patient's BUN and creatinine are better. His hydration status is better with good skin turgor. TIME SPENT: More than 30 minutes. Plan and coordination of the patient's care discussed in the presence of nurse. AIDEE
[2019-10-07 14:42] VITALS: BP 144/66; TEMP 98.6
--- NOTE | 2019-10-07 15:20 | CM.DICTOOL ---
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 RT GROIN SURGERY TWO YEARS AGO LAST VITALS Temp Pulse Resp BP Pulse Ox 98.0 F 98 H 16 151/79 H 99 10/07/19 05:23 10/07/19 05:23 10/07/19 05:23 10/07/19 05:23 10/07/19 05:23 TAKE THESE MEDICATIONS AT HOME ACETAMINOPHEN 650 MG PO Q4HRS PRN MILD PAIN OR FEVER Albuterol/Ipratropium (Duoneb) 3 ml NEB RTQID [facility] Last Admin: 10/07/19 09:40 Dose: 3 ml Documented by: Amlodipine Besylate (Norvasc) 10 mg PO BEDTIME [facility] Last Admin: 10/06/19 20:27 Dose: 10 mg Documented by: Non-Formulary Medication (Diclofenac Sodium [Voltaren]) 4 gm TP BID [facility] Last Admin: 10/07/19 08:51 Dose: 4 gm Documented by: Tramadol HCl (Ultram) 50 mg PO Q6HR PRN PRN Reason: Pain Last Admin: 10/07/19 08:50 Dose: 50 mg Documented by: ZESTORETIC 10/12.5 MG PO DAILY ---- ( CHANGED) METOPROLOL SUCCINATE 50 MG PO DAILY ASA 81 MG PO DAILY ALLERGIES No Known Allergies Allergy (Verified 10/04/19 17:11) DISCONTINUED MEDICATIONS: CYCLOBENZAPRINE ( FLEXERIL) ZESTERITIC 20/12.5 2 TABS DAILY ( CHANGED) NEW PRESCRIPTIONS: ZESTORETIC 10/12.5 MG PO EVERY AM SMOKING: NON- APPLICABLE DISEASE SPECIFIC EDUCATION: DEHYDRATION CKD LAB REVIEW: 10/07/19 04:20 10/07/19 04:20 10/07/19 04:20: Sodium 135.9, Potassium 4.17, Chloride 105.7, Carbon Dioxide 22.0, Anion Gap 12.37, BUN 33.6 H, Creatinine 1.16 H, Estimated GFR (MDRD) 59.00, BUN/Creatinine Ratio 28.96, Glucose 131.6 H, Calcium 8.44, Total Bilirubin 0.25, AST 30.9, ALT 27.3, Alkaline Phosphatase 56.8, Total Protein 6.05 L, Albumin 3.29 L, Globulin 2.76, Albumin/Globulin Ratio 1.19 10/07/19 04:20: WBC 13.20 H, RBC 2.93 L, Hgb 9.0 L, Hct 26.6 L, MCV 90.8, MCH 30.7, MCHC 33.8, RDW Coeff of Lad[place] 13.7, Plt Count 319, Immature Gran % (Auto) 1.5, Neut % (Auto) 87.7 H, Lymph % (Auto) 4.9 L, [place] % (Auto) 5.8, Eos % (Auto) 0.0, Baso % (Auto) 0.1, Immature Gran # (Auto) 0.2, Neut # (Auto) 11.6 H, Lymph # (Auto) 0.7, [place] # (Auto) 0.8, Eos # (Auto) 0.0, Baso # (Auto) 0.0 PLAN: DISCHARGE BACK TO [facility] TODAY ACTIVITY: BED REST AND UP IN CHAIR FOR MEALS PT AND OT TO EVAL AND TREAT FOR DECREASED ROM TO ALL EXTREMITIES DIETARY CONSULT, UNABLE TO DRINK AND EAT/FED SELF DIET:MECHANICAL SOFT (HAND FED) LABS: TAKE ALL TO [facility]: CBC AND CMP IN A WEEK THEN EVERY 3 MONTHS T4, TSH, A1C AND LIPIDS EVERY [address] BLANCO/ TELLO HYDE APRN WILL SEE ON ROUNDS IN 5 - 10 DAYS CODE STATUS: DO NOT RESUSCITATE MR. GOTTI IS ALERT AND ORIENTED TO SELF ONLY. COOPERATIVE AND WITH PLEASANTLY CONFUSED RESPONSES. EDEMA TO ARMS ARE IMPROVED SLIGHTLY. NEEDS TO KEEP UPPER EXTREMITIES ELEVATED BUT SINCE SEVERE ARTHRITIS TO SHOULDERS, VERY LITTLE ROM AND NOT MOVING MUCH. BILATERAL KNEES ALSO HAVE SEVERE ARTHRITIS AND IS NON- AMBULATORY. VOLTERAN GEL TOPICAL TO KNEES AND PO ULTRAM HELP HIS PAIN. INCONTINENT OF BOWEL AND BLADDER WITH LAST BM 10/06/2019. HAS VOIDED WELL LAST 48 HOURS. REQUIRES TO BE SPOON FED AND PROVIDED WITH FLUIDS. DOES CONSUME INTAKE WELL NOW. PT AND OT TO EVAL AT [place] TO SEE IF ROM CAN BE IMPROVED TO ARMS AND LEGS, USING CAUTION SINCE SEVERE ARTHRITIS. DIETARY CONSULT TO ASSURE PROPER CALORIE INTAKE. MD TELLO MARI APRN
--- NOTE | 2019-10-08 10:39 | DS ---
DATE OF SERVICE: 10/07/19 FINAL DIAGNOSIS: 1. RENAL AZOTEMIA 2. DEHYDRATION 3. GASTRITIS 4. UNDERLINED CHRONIC KIDNEY DISEASE STAGE 3 5. HYPERTENSION 6. ALZHEIMER'S DISEASE 7. BILATERAL KNEE OA HISTORY: 1. COPD 2. BRONCHITIS 3. HYPERTENSION 4. ALZHEIMER'S 5. DYSLIPIDEMIA 6. BPH 7. CHRONIC KIDNEY DISEASE, STAGE 3 8. UTI- PROTEUS 9. OSTEOARTHRITIS- GENERALIZED 10. BILATERAL KNEE OA 11. SHORTNESS OF BREATH 12. INCONTINENCE AND FREQUENCY OF URINATION SURGICAL PROCEDURES: 13. HERNIA REPAIR 14. BILATERAL KNEE ARTHROPLASTY - PATIENT REFUSED TO HAVE PROCEDURE 15. 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 CATARACTS 17. RT GROIN SURGERY TWO YEARS AGO LAST VITALS Temp Pulse Resp BP Pulse Ox 98.0 F 98 H 16 151/79 H 99 10/07/19 05:23 10/07/19 05:23 10/07/19 05:23 10/07/19 05:23 10/07/19 05:23 DISCHARGE INSTRUCTIONS: 1. DISCHARGE BACK TO [facility] TODAY. 2. DR BLANCO/ TELLO [place] APRN WILL SEE ON ROUNDS IN 5 - 10 DAYS. 3. PT AND OT TO EVAL AND TREAT FOR DECREASED ROM TO ALL EXTREMITIES. 4. DIETARY CONSULT, UNABLE TO DRINK AND EAT/FED SELF. 5. LABS: TAKE ALL TO [facility]: CBC AND CMP IN A WEEK THEN EVERY 3 MONTHS T4, TSH, A1C AND LIPIDS EVERY 6 MONTHS 6. CODE STATUS: DO NOT RESUSCITATE MEDICATIONS AT DISCHARGE: ACETAMINOPHEN 650 MG PO Q4HRS PRN MILD PAIN OR FEVER Albuterol/Ipratropium (Duoneb) 3 ml NEB RTQID [facility] Last Admin: 10/07/19 09:40 Dose: 3 ml Documented by: Amlodipine Besylate (Norvasc) 10 mg PO BEDTIME [facility] Last Admin: 10/06/19 20:27 Dose: 10 mg Documented by: Non-Formulary Medication (Diclofenac Sodium ) 4 gm TP BID [facility] Last Admin: 10/07/19 08:51 Dose: 4 gm Documented by: Tramadol HCl (Ultram) 50 mg PO Q6HR PRN PRN Reason: Pain Last Admin: 10/07/19 08:50 Dose: 50 mg Documented by: ZESTORETIC 05/15.5 MG PO DAILY ---- ( CHANGED) METOPROLOL SUCCINATE 50 MG PO DAILY ASA 81 MG PO DAILY NEW PRESCRIPTIONS: ZESTORETIC 10/12.5 MG PO EVERY AM DISCONTINUED MEDICATIONS: CYCLOBENZAPRINE ( FLEXERIL) ZESTORETIC 20/12.5 2 TABS DAILY ( CHANGED) DIET INSTRUCTIONS: MECHANICAL SOFT (HAND FED) ACTIVITY: BED REST AND UP IN CHAIR FOR MEALS SMOKING: NON APPLICABLE DISEASE SPECIFIC EDUCATION: DEHYDRATION CKD LAB REVIEW: 10/07/19 04:20: Sodium 135.9, Potassium 4.17, Chloride 105.7, Carbon Dioxide 22.0, Anion Gap 12.37, BUN 33.6 H, Creatinine 1.16 H, Estimated GFR (MDRD) 59.00, BUN/Creatinine Ratio 28.96, Glucose 131.6 H, Calcium 8.44, Total Bilirubin 0.25, AST 30.9, ALT 27.3, Alkaline Phosphatase 56.8, Total Protein 6.05 L, Albumin 3.29 L, Globulin 2.76, Albumin/Globulin Ratio 1.19 10/07/19 04:20: WBC 13.20 H, RBC 2.93 L, Hgb 9.0 L, Hct 26.6 L, MCV 90.8, MCH 30.7, MCHC 33.8, RDW Coeff of Ladan 13.7, Plt Count 319, Immature Gran % (Auto) 1.5, Neut % (Auto) 87.7 H, Lymph % (Auto) 4.9 L, [place] % (Auto) 5.8, Eos % (Auto) 0.0, Baso % (Auto) 0.1, Immature Gran # (Auto) 0.2, Neut # (Auto) 11.6 H, Lymph # (Auto) 0.7, [place] # (Auto) 0.8, Eos # (Auto) 0.0, Baso # (Auto) 0.0 HOSPITAL COURSE: 89-year-old male was hospitalized with acute gastroenteritis type of symptoms. The patient had renal azotemia. The patient was treated with IV fluids. Also had chronic bronchitis which was treated with Prednisone. His condition has improved. The son indicated that the patient needs to be on Hospice. Will refer the patient to hospice. He doesn't want the patient to be sent out to any hospitals in case the patient gets sick. The patient is a DNR. The patient's hydration status was better. His kidney functions were better. CONDITION: Stable. PROGNOSIS: Poor. TIME SPENT: More than 60 minutes. MTDD
--- NOTE | 2019-10-08 10:41 | PN ---
BILLING 10/04/19 ADMISSION DAY LEVEL 5 10/05/19 INTERMEDIATE 10/06/19 INTERMEDIATE 10/07/19 DISCHARGE MTDD
--- NOTE | 2019-10-15 13:49 | PN ---
DATE OF SERVICE: 10/07/19 SUBJECTIVE: Mr. Davis was seen and examined this morning. The patient's son is present in the room. He is coughing somewhat but otherwise his condition is better. Skin turgor is a lot better. PHYSICAL EXAMINATION: HEENT: Head normocephalic, atraumatic. Eyes: Extraocular muscles are intact. Pupils are equal, round and reactive to light and accommodation. Ears: No lesions. Nose appeared normal. Throat: No exudate or erythema. NECK: Supple. No JVD, no carotid bruit. No lymphadenopathy or thyromegaly. LUNGS: Clear to auscultation. Percussion note normal. Chest symmetrical. HEART: S1, S2, no S3. No murmurs. No cyanosis or clubbing. No ascites. Pulses: Dorsalis pedis and posterior tibial pulses +1 to +2 bilaterally. ABDOMEN: Soft. Nontender. Bowel sounds active. No CVA tenderness. No mass felt. EXTREMITIES: No edema. Full range of motion of all extremities, equal. NEUROLOGIC: No focal deficit. Cranial nerves II through XII are grossly intact. No headache, no double vision or headache. SKIN: Not dry. Intact. Turgor - normal. LYMPHATIC: No palpable lymph nodes/no lymphedema. MUSCULOSKELETAL: Normal joints with no swelling. Muscle tone is normal. ASSESSMENT: Kidney test has improved. The patient's son wants him to be on Hospice for Alzheimer's dementia, doesn't want him to be brought out to the hospital in case the patient has any medical problems. He wants him to be on hospice. We will refer him to hospice once he goes back to the retirement. TIME SPENT: More than 30 minutes. Plan and coordination of the patient's care discussed in the presence of nurse. AIDEE
== END 2019-10-07 14:15 | DRG 392 ==
LOC: ED 15:28 → MEDSURG B 15:28 → OBSVTOIN 19:32 → MEDSURG B 20:00
PROVIDERS: ADMIT Internal Medicine; ATTEND Internal Medicine